=== PATIENT | male | born 1955 | race Caucasian/White ===

== ENCOUNTER → 2020-07-07 09:39 | Outpatient (BNVA) | payer OTHER, SELFPAY | PROVIDERS: PCP Internal Medicine; Visit Provider Internal Medicine | DX: Q21.1 Atrial septal defect (principal); Z86.73 Personal history of transient ischemic attack (TIA), and cerebral infarction without residual deficits; Z79.82 Long term (current) use of aspirin | CPT/HCPCS: 99212 ==

== ENCOUNTER 2020-07-26 09:08 | Outpatient (REF) | payer OTHER, SELFPAY ==
[2020-07-26 12:38] LABS: Anion Gap 12 (12-20); Blood Urea Nitrogen 13 mg/dL (9-16); Calcium 8.7 mg/dL (8.4-10.2); Carbon Dioxide 27 mmol/L (22-29); Chloride 107 mmol/L (96-108); Cholesterol 211 mg/dL; Estimated Glomerular Filt Rate > 60; Glucose Fasting 100 mg/dL (60-99); HDL Cholesterol 33 mg/dL; LDL Cholesterol Calculated 140 mg/dl; Potassium 4.1 mmol/l (3.3-5.1); Sodium 142 mmol/L (135-145); Triglycerides 192 mg/dL
== END 2020-07-26 09:09 | disposition home or self-care (01) ==
LOC: HO.HMGCLDS 09:08
PROVIDERS: PCP Internal Medicine; Visit Provider Internal Medicine
DX: E78.9 Disorder of lipoprotein metabolism, unspecified (principal); F41.1 Generalized anxiety disorder; I10 Essential (primary) hypertension; M79.671 Pain in right foot
CPT/HCPCS: 80048; 80061

== ENCOUNTER → 2020-09-28 09:39 | Outpatient (BNVA) | payer OTHER, SELFPAY | PROVIDERS: PCP Internal Medicine; Visit Provider Internal Medicine ==

== ENCOUNTER 2020-10-14 12:34 | Outpatient (REF) | payer OTHER, SELFPAY ==
--- NOTE | ~2020-10-14 | MR_ITS ---
EXAMINATION: MR BRAIN WITHOUT CONTRAST CLINICAL INFORMATION: History stroke and 2019. Peripheral vision loss. COMPARISON: 03/09/2019 TECHNIQUE: MRI of the brain was obtained using routine sequences without contrast. FINDINGS: Interval evolution of the previously seen bilateral inferior medial (lingual gyri) occipital lobe infarct into bilateral encephalomalacic changes, associated gliosis and hemosiderin staining. Scattered bilateral subcortical and periventricular foci of T2 prolongation show slight interval progression from the previous exam compatible with chronic white matter small vessel ischemic disease. Diffusion weighted images fail to demonstrate evidence of acute or subacute infarct. No evidence of intracranial mass, mass effect or herniation pattern. No extra-axial collection. Posterior fossa structures are normal. The craniocervical junction is normal. Midline structures including the posterior pituitary bright spot are normal. The lateral and third ventricles are normal and proportionate to the subarachnoid spaces and there is no evidence of hydrocephalus. The intracranial vascular flow voids including the major dural venous sinuses are preserved. Mastoid air cells are clear. Mucus retention cyst present within the left maxillary sinus. Paranasal sinuses are otherwise clear. Globes and orbits are symmetric. MR/MR head/brain wo con IMPRESSION: * No acute or subacute intracranial pathology. * Old bilateral occipital lingual gyral infarcts. * Chronic progressive moderate white matter small vessel ischemic changes.
== END 2020-10-14 12:35 | disposition home or self-care (01) ==
LOC: HO.MRI 12:34
PROVIDERS: Visit Provider Psychiatry & Neurology Neurology
DX: I63.9 Cerebral infarction, unspecified (principal)
CPT/HCPCS: 70551

== ENCOUNTER 2020-10-21 11:50 | Outpatient (REF) | payer OTHER, SELFPAY ==
[2020-10-21 12:17] VITALS: BP 167/84; PULSE 44; RESP 16; TEMP 36.3; O2SAT 98
[2020-10-21 12:21] VITALS: BMI 32.8
[2020-10-21 12:54] VITALS: BP 168/96; PULSE 55; RESP 16; O2SAT 97
--- NOTE | 2020-10-21 13:00 | PM.OP ---
Brief Operative Note Date of Service: 10/21/20 Pre-op diagnosis: CVA Post-op diagnosis: same Procedure: Implantable loop recorder placement Implants: After obtaining consent patient brought to the minor surgery suite . Patient was then laid on the surgical table. Patient's precordial area was then prepped and draped in a sterile fashion. Patient was then given 2% lidocaine with epinephrine intradermally and subcutaneously. Small incision was then made in the 4th intercostal space. A [place] implantable loop recorder confirm device was then implanted using Seldinger technique. Patient tolerated the procedure well. Serial [id number]. Measured R-wave at 0.5 mV Surgeon: Harjeet Ardon MD Anesthesia: local Estimated blood loss (mL): 1 Pathology: none sent Condition: stable Disposition: same day
== END 2020-10-21 11:51 | disposition home or self-care (01) ==
LOC: HO.MS 11:50
PROVIDERS: PCP Internal Medicine; Visit Provider Internal Medicine Cardiovascular Disease
PROC: (CPT 33285; principal; 2020-10-21 12:30)
DX: I63.9 Cerebral infarction, unspecified (principal)
CPT/HCPCS: 33285; C1764

== ENCOUNTER → 2020-11-01 10:24 | Outpatient (BNVA) | payer OTHER, SELFPAY | PROVIDERS: PCP Internal Medicine; Visit Provider Nurse Practitioner Family | DX: I63.40 Cerebral infarction due to embolism of unspecified cerebral artery (principal); Q21.1 Atrial septal defect; Z95.818 Presence of other cardiac implants and grafts; Z79.899 Other long term (current) drug therapy | CPT/HCPCS: 99212 ==

== ENCOUNTER → 2020-11-09 11:28 | Outpatient (BNVA) | payer OTHER, SELFPAY | PROVIDERS: PCP Internal Medicine; Visit Provider Nurse Practitioner Family | DX: I10 Essential (primary) hypertension (principal); Z51.89 Encounter for other specified aftercare; Z79.899 Other long term (current) drug therapy; Z87.891 Personal history of nicotine dependence; Z79.82 Long term (current) use of aspirin | CPT/HCPCS: 99212 ==

== ENCOUNTER → 2020-11-16 12:01 | Outpatient (BNVA) | payer OTHER, SELFPAY | PROVIDERS: PCP Internal Medicine; Visit Provider Nurse Practitioner Family | DX: Z51.89 Encounter for other specified aftercare (principal); I10 Essential (primary) hypertension; Z79.899 Other long term (current) drug therapy | CPT/HCPCS: 99212 ==

== ENCOUNTER → 2020-12-01 12:02 | Outpatient (BNVA) | payer OTHER, SELFPAY | PROVIDERS: PCP Internal Medicine; Visit Provider Nurse Practitioner Family | DX: Z51.89 Encounter for other specified aftercare (principal); Z95.818 Presence of other cardiac implants and grafts | CPT/HCPCS: 99212 ==

== ENCOUNTER 2021-01-16 08:49 | Outpatient (REF) | payer OTHER, SELFPAY ==
[2021-01-16 11:19] LABS: MANUAL DIFF FLAG NO
[2021-01-16 12:02] LABS: Basophils Percent Auto 0.6 % (0-2); Eosinophils Absolute Auto 0.1 X10*3/uL (0.0-0.4); Eosinophils Percent Auto 1.5 % (0-4); Hematocrit 41.9 % (42-52); Imm Gran Abs Auto 0.02 X10*3/uL (0.00-0.03); Imm Gran Pct Auto 0.4 % (0.0-0.4); Lymphocytes Absolute Auto 1.4 X10*3/uL (1.2-4.9); Lymphocytes Percent Auto 26.7 % (20-40); Mean Corpuscular HGB Conc 33.4 g/dl (31.0-36.0); Mean Corpuscular Hemoglobin 31.4 pg (27.0-33.0); Mean Corpuscular Volume 93.9 fL (80-98); Mean Platelet Volume 9.5 fL (9.4-12.4); Monocytes Absolute Auto 0.3 X10*3/uL (0.1-1.2); Monocytes Percent Auto 6.2 % (2-11); Neutrophils Absolute Auto 3.5 X10*3/uL (2.0-8.3); Neutrophils Percent Auto 64.6 % (45-73); Platelet Count 234 X10*3/uL (160-400); Red Blood Count 4.46 X10*6/uL (4.60-5.80); Red Cell Distribution Width 12.9 % (11.0-16.0); White Blood Count 5.4 X10*3/uL (4.8-10.8)
[2021-01-16 12:10] LABS: Alanine Aminotransferase 16 U/L (0-40); Albumin Level 4.4 g/dL (3.5-5.0); Alkaline Phosphatase 81 U/L (39-117); Anion Gap 11 (12-20); Aspartate Amino Transferase 18 U/L (5-37); Bilirubin Total 0.6 mg/dL (0.0-1.0); Blood Urea Nitrogen 11 mg/dL (9-16); Calcium 9.2 mg/dL (8.4-10.2); Carbon Dioxide 29 mmol/L (22-29); Chloride 105 mmol/L (96-108); Cholesterol 196 mg/dL; Estimated Glomerular Filt Rate > 60; Glucose Fasting 97 mg/dL (60-99); HDL Cholesterol 36 mg/dL; LDL Cholesterol Calculated 112 mg/dl; Potassium 4.2 mmol/L (3.3-5.1); Sodium 141 mmol/L (135-145); Total Protein 7.3 g/dL (6.5-8.0); Triglycerides 243 mg/dL
[2021-01-16 12:13] LABS: TSH reflex Free T4 1.14 uIU/mL (0.32-4.0)
== END 2021-01-16 08:50 | disposition home or self-care (01) ==
LOC: HO.HMGCLDS 08:49
PROVIDERS: PCP Internal Medicine; Visit Provider Internal Medicine
DX: E78.9 Disorder of lipoprotein metabolism, unspecified (principal); F41.1 Generalized anxiety disorder; I10 Essential (primary) hypertension; R21 Rash and other nonspecific skin eruption
CPT/HCPCS: 36415; 80053; 80061; 84443; 85025

== ENCOUNTER 2021-03-28 10:38 | Outpatient (REF) | payer OTHER, SELFPAY ==
[2021-03-29 16:51] LABS: Lyme Blot 6.24 index
[2021-03-30 08:48] LABS: Lyme Abs Screen POSITIVE
[2021-03-31 20:42] LABS: 18 KD (IgG) Band REACTIVE; 23 KD (IgG) Band REACTIVE; 23 KD (IgM) Band REACTIVE; 28 KD (IgG) Band NON-REACTIVE; 30 KD (IgG) Band NON-REACTIVE; 39 KD (IgM) Band NON-REACTIVE; 41 KD (IgM) Band NON-REACTIVE; 45 KD (IgG) Band NON-REACTIVE; 58 KD (IgG) Band NON-REACTIVE; 66 KD (IgG) Band NON-REACTIVE; 93 KD (IgG) Band NON-REACTIVE; Lyme IgG Blot Interp NEGATIVE (NEGATIVE); Lyme IgM Blot Interp NEGATIVE (NEGATIVE)
== END 2021-03-28 10:39 | disposition home or self-care (01) ==
LOC: HO.HMGCLDS 10:38
PROVIDERS: PCP Internal Medicine; Visit Provider Hospitalist
DX: T14.8XXA Other injury of unspecified body region, initial encounter (principal); W57.XXXA Bitten or stung by nonvenomous insect and other nonvenomous arthropods, initial encounter
CPT/HCPCS: 36415; 86617; 86618

== ENCOUNTER 2021-05-09 14:05 | Outpatient (REF) | payer OTHER, SELFPAY ==
[2021-05-09 18:10] LABS: Alanine Aminotransferase 20 U/L (0-40); Albumin Level 4.7 g/dL (3.5-5.0); Alkaline Phosphatase 75 U/L (39-117); Anion Gap 12 (12-20); Aspartate Amino Transferase 21 U/L (5-37); Bilirubin Total 0.6 mg/dL (0.0-1.0); Blood Urea Nitrogen 13 mg/dL (9-16); Calcium 9.9 mg/dL (8.4-10.2); Carbon Dioxide 28 mmol/L (22-29); Chloride 104 mmol/L (96-108); Estimated Glomerular Filt Rate > 60; Glucose Random 86 mg/dL (60-115); Potassium 4.7 mmol/L (3.3-5.1); Sodium 139 mmol/L (135-145); Total Protein 7.9 g/dL (6.5-8.0)
== END 2021-05-09 14:06 | disposition home or self-care (01) ==
LOC: HO.HMGCLDS 14:05
PROVIDERS: PCP Internal Medicine; Visit Provider Internal Medicine
DX: F41.1 Generalized anxiety disorder (principal); I10 Essential (primary) hypertension; E78.9 Disorder of lipoprotein metabolism, unspecified; Z95.818 Presence of other cardiac implants and grafts
CPT/HCPCS: 36415; 80053

== ENCOUNTER → 2021-05-10 13:12 | Outpatient (BNVA) | payer OTHER, SELFPAY | PROVIDERS: PCP Internal Medicine; Referring Provider Internal Medicine; Visit Provider Internal Medicine | DX: I63.40 Cerebral infarction due to embolism of unspecified cerebral artery (principal); Q21.1 Atrial septal defect; I10 Essential (primary) hypertension | CPT/HCPCS: 93005; 99212 ==

== ENCOUNTER 2021-10-11 13:38 | Outpatient (REF) | payer MEDICARE, MEDICAID, SELFPAY ==
[2021-10-11 16:27] LABS: MANUAL DIFF FLAG NO
[2021-10-11 16:29] LABS: Basophils Percent Auto 0.8 % (0-2); Eosinophils Absolute Auto 0.1 X10*3/uL (0.0-0.4); Eosinophils Percent Auto 1.8 % (0-4); Hematocrit 40.3 % (42.0-52.0); Hemoglobin 13.5 g/dl (14.0-18.0); Imm Gran Abs Auto 0.02 X10*3/uL (0.00-0.03); Imm Gran Pct Auto 0.4 % (0.0-0.4); Lymphocytes Absolute Auto 1.4 X10*3/uL (1.2-4.9); Lymphocytes Percent Auto 27.2 % (20-40); Mean Corpuscular HGB Conc 33.5 g/dl (31.0-36.0); Mean Corpuscular Volume 92.4 fL (80.0-98.0); Mean Platelet Volume 9.5 fL (9.4-12.4); Monocytes Absolute Auto 0.4 X10*3/uL (0.1-1.2); Monocytes Percent Auto 7.7 % (2-11); Neutrophils Absolute Auto 3.1 x10*3/uL (2.0-8.3); Neutrophils Percent Auto 62.1 % (45-73); Platelet Count 265 X10*3/uL (160-400); Red Blood Count 4.36 X10*6/uL (4.60-5.80); Red Cell Distribution Width 13.1 % (11.0-16.0)
[2021-10-11 16:44] LABS: Alanine Aminotransferase 13 U/L (0-40); Albumin Level 4.4 g/dL (3.5-5.0); Alkaline Phosphatase 87 U/L (39-117); Anion Gap 11 (12-20); Aspartate Amino Transferase 17 U/L (5-37); Bilirubin Total < 0.2 mg/dL (0.0-1.0); Blood Urea Nitrogen 13 mg/dL (9-16); Calcium 9.3 mg/dL (8.4-10.2); Carbon Dioxide 29 mmol/L (22-29); Chloride 104 mmol/L (96-108); Estimated Glomerular Filt Rate > 60; Glucose Random 90 mg/dL (60-115); Potassium 3.9 mmol/L (3.3-5.1); Sodium 140 mmol/L (135-145); Total Protein 7.5 g/dL (6.5-8.0)
== END 2021-10-11 13:39 | disposition home or self-care (01) ==
LOC: HO.HMGCLDS 13:38
PROVIDERS: PCP Internal Medicine; Visit Provider Internal Medicine
DX: I63.9 Cerebral infarction, unspecified (principal); I10 Essential (primary) hypertension; Q21.1 Atrial septal defect; F41.1 Generalized anxiety disorder; E78.9 Disorder of lipoprotein metabolism, unspecified
CPT/HCPCS: 36415; 80053; 85025

== ENCOUNTER 2022-01-16 08:32 | Outpatient (REF) | payer MEDICARE, MEDICAID, SELFPAY ==
[2022-01-16 11:25] LABS: MANUAL DIFF FLAG NO
[2022-01-16 11:29] LABS: Basophils Percent Auto 0.7 % (0-2); Eosinophils Absolute Auto 0.1 X10*3/uL (0.0-0.4); Eosinophils Percent Auto 1.8 % (0-4); Hematocrit 41.7 % (42.0-52.0); Hemoglobin 13.8 g/dl (14.0-18.0); Imm Gran Abs Auto 0.03 X10*3/uL (0.00-0.03); Imm Gran Pct Auto 0.5 % (0.0-0.4); Lymphocytes Absolute Auto 1.3 X10*3/uL (1.2-4.9); Lymphocytes Percent Auto 23.4 % (20-40); Mean Corpuscular HGB Conc 33.1 g/dl (31.0-36.0); Mean Corpuscular Hemoglobin 30.5 pg (27.0-33.0); Mean Corpuscular Volume 92.1 fL (80.0-98.0); Mean Platelet Volume 9.2 fL (9.4-12.4); Monocytes Absolute Auto 0.4 X10*3/uL (0.1-1.2); Monocytes Percent Auto 7.6 % (2-11); Neutrophils Absolute Auto 3.8 x10*3/uL (2.0-8.3); Platelet Count 257 X10*3/uL (160-400); Red Blood Count 4.53 X10*6/uL (4.60-5.80); Red Cell Distribution Width 13.3 % (11.0-16.0); White Blood Count 5.7 X10*3/uL (4.8-10.8)
[2022-01-16 11:43] LABS: Alanine Aminotransferase 14 U/L (0-40); Albumin Level 4.3 g/dL (3.5-5.0); Alkaline Phosphatase 92 U/L (39-117); Anion Gap 13 (12-20); Aspartate Amino Transferase 15 U/L (5-37); Bilirubin Total 0.3 mg/dL (0.0-1.0); Blood Urea Nitrogen 15 mg/dL (9-16); Calcium 9.6 mg/dL (8.4-10.2); Carbon Dioxide 28 mmol/L (22-29); Chloride 105 mmol/L (96-108); Cholesterol 193 mg/dL; Estimated Glomerular Filt Rate > 60; Glucose Fasting 102 mg/dL (60-99); HDL Cholesterol 32 mg/dL; LDL Cholesterol Calculated 109 mg/dl; Potassium 4.4 mmol/L (3.3-5.1); Sodium 142 mmol/L (135-145); Total Protein 7.6 g/dL (6.5-8.0); Triglycerides 263 mg/dL
== END 2022-01-16 08:33 | disposition home or self-care (01) ==
LOC: HO.HMGCLDS 08:32
PROVIDERS: PCP Internal Medicine; Visit Provider Internal Medicine
DX: E78.9 Disorder of lipoprotein metabolism, unspecified (principal); I10 Essential (primary) hypertension; F41.1 Generalized anxiety disorder; I63.9 Cerebral infarction, unspecified; Q21.1 Atrial septal defect
CPT/HCPCS: 36415; 80053; 80061; 85025

== ENCOUNTER 2022-08-13 13:35 | Outpatient (REF) | payer MEDICARE, MEDICAID, SELFPAY ==
[2022-08-13 17:26] LABS: Alanine Aminotransferase 19 U/L (0-40); Albumin Level 4.6 g/dL (3.5-5.0); Alkaline Phosphatase 99 U/L (39-117); Anion Gap 12 (12-20); Aspartate Amino Transferase 19 U/L (5-37); Bilirubin Total 0.6 mg/dL (0.0-1.0); Blood Urea Nitrogen 15 mg/dL (9-16); Calcium 9.3 mg/dL (8.4-10.2); Carbon Dioxide 25 mmol/L (22-29); Chloride 105 mmol/L (96-108); Estimated Glomerular Filt Rate > 60; Glucose Random 95 mg/dL (60-115); Potassium 4.4 mmol/L (3.3-5.1); Sodium 138 mmol/L (135-145); Total Protein 7.6 g/dL (6.5-8.0)
[2022-08-14 05:17] LABS: Estimated Average Glucose 105 mg/dL; Hemoglobin A1c % 5.3 %
== END 2022-08-13 13:36 | disposition home or self-care (01) ==
LOC: HO.HMGCLDS 13:35
PROVIDERS: PCP Internal Medicine; Visit Provider Internal Medicine
DX: E78.9 Disorder of lipoprotein metabolism, unspecified (principal); F41.1 Generalized anxiety disorder; I63.9 Cerebral infarction, unspecified; I10 Essential (primary) hypertension
CPT/HCPCS: 36415; 80053; 83036

== ENCOUNTER 2022-08-23 17:01 | Outpatient (REF) | payer MEDICARE, MEDICAID, SELFPAY ==
--- NOTE | ~2022-08-23 | XR_ITS ---
EXAMINATION: XR ELBOW, LEFT CLINICAL INFORMATION: Lateral epicondylitis left elbow. COMPARISON: None TECHNIQUE: AP, lateral, and oblique views of the left elbow. FINDINGS: The bones and soft tissues are normal. No acute fracture or joint effusion. Alignment is anatomic. Joint spaces are maintained. XR/XR elbow LT min 3V IMPRESSION: Unremarkable left elbow exam.
== END 2022-08-23 17:02 | disposition home or self-care (01) ==
LOC: HO.HOSX 17:01
PROVIDERS: Visit Provider Orthopaedic Surgery
DX: M77.12 Lateral epicondylitis, left elbow (principal); R73.01 Impaired fasting glucose
CPT/HCPCS: 20551; 73080; 99212; J1100

== ENCOUNTER 2022-12-12 12:01 | Outpatient (REF) | payer MEDICARE, MEDICAID, SELFPAY ==
[2022-12-12 14:00] LABS: MANUAL DIFF FLAG NO
[2022-12-12 14:09] LABS: Basophils Percent Auto 0.8 % (0-2); Eosinophils Absolute Auto 0.1 X10*3/uL (0.0-0.4); Eosinophils Percent Auto 1.7 % (0-4); Hematocrit 39.3 % (42.0-52.0); Hemoglobin 13.5 g/dl (14.0-18.0); Imm Gran Abs Auto 0.02 X10*3/uL (0.00-0.03); Imm Gran Pct Auto 0.4 % (0.0-0.4); Lymphocytes Absolute Auto 1.5 X10*3/uL (1.2-4.9); Lymphocytes Percent Auto 28.8 % (20-40); Mean Corpuscular HGB Conc 34.4 g/dl (31.0-36.0); Mean Corpuscular Volume 93.1 fL (80.0-98.0); Monocytes Absolute Auto 0.3 X10*3/uL (0.1-1.2); Monocytes Percent Auto 6.3 % (2-11); Neutrophils Absolute Auto 3.3 x10*3/uL (2.0-8.3); Platelet Count 278 X10*3/uL (160-400); Red Blood Count 4.22 X10*6/uL (4.60-5.80); Red Cell Distribution Width 13.2 % (11.0-16.0); White Blood Count 5.2 X10*3/uL (4.8-10.8)
[2022-12-12 14:17] LABS: Estimated Average Glucose 103 mg/dL; Hemoglobin A1c % 5.2 %
[2022-12-12 15:00] LABS: Alanine Aminotransferase 17 U/L (0-40); Albumin Level 4.4 g/dL (3.5-5.0); Alkaline Phosphatase 83 U/L (39-117); Anion Gap 11 (12-20); Aspartate Amino Transferase 21 U/L (5-37); Bilirubin Total 0.4 mg/dL (0.0-1.0); Blood Urea Nitrogen 14 mg/dL (9-16); Calcium 9.3 mg/dL (8.4-10.2); Carbon Dioxide 29 mmol/L (22-29); Chloride 106 mmol/L (96-108); Estimated Glomerular Filt Rate > 60; Glucose Random 93 mg/dL (60-115); Potassium 4.8 mmol/L (3.3-5.1); Sodium 141 mmol/L (135-145); Total Protein 7.2 g/dL (6.5-8.0)
[2022-12-14 08:24] LABS: Lyme Abs Screen <0.90 index
== END 2022-12-12 12:02 | disposition home or self-care (01) ==
LOC: HO.HMGCLDS 12:01
PROVIDERS: PCP Internal Medicine; Visit Provider Internal Medicine
DX: R73.01 Impaired fasting glucose (principal); E78.9 Disorder of lipoprotein metabolism, unspecified; F41.1 Generalized anxiety disorder; I10 Essential (primary) hypertension; R76.8 Other specified abnormal immunological findings in serum
CPT/HCPCS: 36415; 80053; 83036; 85025; 86617; 86618

== ENCOUNTER 2023-03-13 13:01 | Outpatient (AMB) | payer MEDICARE, MEDICAID, SELFPAY ==
--- NOTE | 2023-03-13 13:02 | MHC.PC.OV ---
Vital Signs 03/13/23 13:05 Height 5 ft 7 in Weight 193 lb 6 oz BMI 30.3 BP 120/64 Blood Pressure Location Rt brachial Position Sitting Pulse 45 L Pulse Source Pulse Oximeter Pulse Oximetry (%) 97 Oxygen Delivery Method Room Air Intake Visit Reasons: 3m follow up Allergies Chocolate Allergy (Unknown, Verified 03/13/23 13:05) Itchy/ Watery Eyes Yeast Allergy (Unknown, Verified 03/13/23 13:05) Per allergy testing Medication List - Last Reconciled 03/13/23 by Leeann Petit MD amlodipine 5 mg PO DAILY 90 days apixaban (Eliquis) 5 mg PO BID 90 days atenolol 100 mg PO DAILY 90 days clotrimazole-betamethasone 1-0.05 % 1 appl topical ONCE 30 days sertraline 100 mg PO DAILY simvastatin 40 mg PO BEDTIME spironolactone 50 mg PO DAILY 90 days Tobacco use date assessed: 03/13/23 Fall risk assessment: No Falls in past year Last assessed Fall Risk: 03/13/23 Dental Screening Dental Screen Date: 03/13/23 Did you have a dental visit in the last 12 months?: No Did you have a dental problem in the last 6 months where you did not have access to dental care?: No Was dental information given to patient?: No HPI 3m follow up HPI Details 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 He has appointment coming up with Rheumatology in April. Hypertension: patient is taking amlodipine 5 mg, atenolol 100 mg and spironolactone 50 mg patient is tolerating medication Lipid disorder: Continue simvastatin 40 mg. Anxiety/depression is stable with sertraline 100 mg daily. Patient also is on Eliquis for lifelong. He has a history of stroke Follow-up 3 months [facility] Medical History Anxiety, generalized Cerebrovascular accident (CVA) Essential hypertension Foot pain, right Hypertension, essential Lipid disorder Other and unspecified hyperlipidemia PFO (patent foramen ovale) Surgical History History of dental surgery Family History Father Hypertension Myocardial infarct Mother No problems noted. Social History Housing: Other (RV) Alcohol intake: current Alcohol intake frequency: holidays/special occasions only Patient Tobacco Use Status: Former Tobacco user (20 years ag0) Tobacco use type: Cigarette e-Cigarette/Vaping Use: Never Used Current occupational status: disabled Cognitive needs: No Hearing needs: No Vision needs: Yes Questionnaire Thrive Questionnaire Date Thrive assessed: 05/09/21 AUDIT C Alcohol Use Questionnaire (AUDIT-C) 1. How often do you have a drink containing alcohol?: Never 3. How often do you have six or more drinks on one occasion?: Never Total Score: 0 Score Reviewed/Action Taken: Yes Review of Systems Const Denies chills and Denies fever(s) ENT Denies epistaxis and Denies nasal discharge Card Denies chest pain Resp Denies chest congestion, Denies cough and Denies hemoptysis GI Denies diarrhea and Denies nausea Skin/Breast Denies rash Neuro Reports no additional complaints Psych Reports no additional complaints Endo Reports no additional complaints Physical exam (Primary Care) Vital Signs: Last Vital Signs Pulse 45 L 03/13/23 13:05 BP 120/64 03/13/23 13:05 Pulse Ox 97 03/13/23 13:05 Oxygen Delivery Method Room Air 03/13/23 13:05 BMI result Body Mass Index 30.3 Tobacco/Smoking Status: Tobacco use Status Tobacco use date assessed 03/13/23 03/13/23 13:07 Patient Tobacco Use Status Former Tobacco user (20 03/13/23 13:04 years ag0) Tobacco use type Cigarette 03/13/23 13:04 e-Cigarette/Vaping Use Never Used 03/13/23 13:04 Thrive Assessment: Date of Thrive Assessment Date Thrive assessed 05/09/21 03/13/23 13:04 Const General: cooperative, comfortable and no acute distress Orientation/consciousness: patient oriented x3 HENMT Head: Yes normocephalic Eyes General: appearance normal, both eyes and all related structures Neck Neck: Yes supple Resp Effort & Inspection: normal respiratory effort, no cough and no stridor Cardio Rhythm: regular rhythm Heart sounds: S1 normal heart sound present and S2 normal heart sound present Skin General skin exam: turgor normal Neuro General: patient oriented x3, tone normal and moves all extremities Extrem Other: Range of motion intact in joints no swelling noted in elbows Right lower extremity: no edema Left lower extremity: no edema Assessment and Plan Assessment & Plan (1) Hypertension, essential: Code(s): I10 - Essential (primary) hypertension (2) Anxiety, generalized: Code(s): F41.1 - Generalized anxiety disorder (3) Impaired fasting blood sugar: Code(s): R73.01 - Impaired fasting glucose (4) Migratory polyarthritis: Code(s): 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 He has appointment coming up with Rheumatology in April. Hypertension: patient is taking amlodipine 5 mg, atenolol 100 mg and spironolactone 50 mg patient is tolerating medication Lipid disorder: Continue simvastatin 40 mg. Anxiety/depression is stable with sertraline 100 mg daily. Patient also is on Eliquis for lifelong. He has a history of stroke Follow-up 3 months Orders: Orders Vitamin B12 2 Months F41.1 - Generalized anxiety disorder, I10 - Essential (primary) hypertension, M13.80 - Other specified arthritis, unspecified site, R73.01 - Impaired fasting glucose Comprehensive Clifford. Panel Fast 2 Months F41.1 - Generalized anxiety disorder, I10 - Essential (primary) hypertension, M13.80 - Other specified arthritis, unspecified site, R73.01 - Impaired fasting glucose Lipid Panel 2 Months F41.1 - Generalized anxiety disorder, I10 - Essential (primary) hypertension, M13.80 - Other specified arthritis, unspecified site, R73.01 - Impaired fasting glucose TSH reflex Free T4 2 Months F41.1 - Generalized anxiety disorder, I10 - Essential (primary) hypertension, M13.80 - Other specified arthritis, unspecified site, R73.01 - Impaired fasting glucose Vitamin D 25-OH (D2 and D3) 2 Months F41.1 - Generalized anxiety disorder, I10 - Essential (primary) hypertension, M13.80 - Other specified arthritis, unspecified site, R73.01 - Impaired fasting glucose Complete Blood Count Auto Diff 2 Months F41.1 - Generalized anxiety disorder, I10 - Essential (primary) hypertension, M13.80 - Other specified arthritis, unspecified site, R73.01 - Impaired fasting glucose Coding Level of Care Code Est Pt Level 4 (58770) Diagnoses Hypertension, essential I10 Anxiety, generalized F41.1 Impaired fasting blood sugar R73.01 Migratory polyarthritis M13.80 History of stroke Z86.73
[2023-03-13 13:05] VITALS: BP 120/64; PULSE 45; O2SAT 97; BMI 30.3
== END 2023-03-13 14:14 | disposition home or self-care (01) ==
PROVIDERS: Visit Provider Internal Medicine
DX: I10 Essential (primary) hypertension (principal); F41.1 Generalized anxiety disorder; R73.01 Impaired fasting glucose; Z86.73 Personal history of transient ischemic attack (TIA), and cerebral infarction without residual deficits; M13.80 Other specified arthritis, unspecified site
CPT/HCPCS: 99214

== ENCOUNTER 2023-05-22 10:55 | Outpatient (AMB) | payer MEDICARE, MEDICAID, SELFPAY ==
--- NOTE | 2023-05-22 10:57 | A.OFFVIS_ITS ---
Intake Vital Signs 05/22/23 10:59 Height 5 ft 7 in Weight 195 lb 1.745 oz BMI 30.6 BP 102/60 Blood Pressure Location Rt brachial Position Sitting Pulse 50 Pulse Source Pulse Oximeter Temp 97.2 F Temp Source Skin Pulse Oximetry (%) 97 Intake Visit Reasons: Arthritis Intake Note: New pt presents today for consult. States had pain in all joints, has resolved, after seeing ortho- Lateral epicondylitis, left elbow; s/p cortisone injection. Lsw Required: No Accompanied by: Self / Same As Patient Allergies Chocolate Allergy (Unknown, Verified 05/22/23 11:02) Itchy/ Watery Eyes Yeast Allergy (Unknown, Verified 05/22/23 11:02) Per allergy testing Medication List - Last Reconciled 05/22/23 by Bridgette Murcia MD amlodipine 5 mg PO DAILY 90 days apixaban (Eliquis) 5 mg PO BID 90 days atenolol 100 mg PO DAILY 90 days clotrimazole-betamethasone 1-0.05 % 1 appl topical ONCE 30 days sertraline 100 mg PO DAILY simvastatin 40 mg PO BEDTIME spironolactone 50 mg PO DAILY 90 days HPI HPI Comments History of Present Illness Details This is a 67-year-old male presents for evaluation of migratory arthritis. Patient mentioned that he was diagnosed with Lyme disease a few years ago and received antibiotics with resolution. Back in July of 2022 patient was having left elbow pain. He was evaluated by Orthopedics and received a steroid injection which started to help after a few days, a few days after he started having pain in his right elbow. Over the last few months has been having alternating pain in his elbows, intermittently in his neck. States that he had dental work done about a month ago and received antibiotics by dentist. He states that he feels the antibiotics significantly helped his joint pain. Currently patient only has minimal pain in his elbows. Feeling well otherwise [facility] Medical History Anxiety, generalized Hypertension, essential Lipid disorder Foot pain, right Other and unspecified hyperlipidemia Essential hypertension PFO (patent foramen ovale) Cerebrovascular accident (CVA) Surgical History History of dental surgery Family History Father Hypertension Myocardial infarct Mother No problems noted. 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 Cognitive needs: No Hearing needs: No Vision needs: Yes Review of Systems Const Reports headache(s) Eyes Reports dry eyes and Reports itchy eyes ENT Reports headache(s) Musc Reports arthralgias Skin/Breast Reports unusual bruising Neuro Reports headache(s) Psych Reports anxiety and Reports depression Aller/Immun Reports itchy eyes Physical Exam Vital Signs: Last Vital Signs Temp 97.2 F 05/22/23 10:59 Pulse 50 05/22/23 10:59 BP 102/60 05/22/23 10:59 Pulse Ox 97 05/22/23 10:59 BMI result Body Mass Index 30.6 Const General: cooperative, healthy appearing and comfortable Nutritional Appearance: overweight Orientation/consciousness: patient oriented x3 Limitations: no limitations HEENT Head: Yes normocephalic and Yes atraumatic Mouth: moist mucous membranes Resp Effort & Inspection: normal respiratory effort and able to speak in complete sentences Auscultation: clear to auscultation bilaterally Cardio Rate: regular rate Rhythm: regular rhythm Skin General skin exam: no rashes or lesions noted Neuro General: patient oriented x3 Extrem Other: Mild tenderness at the common extensor origin at the lateral epicondyles bilaterally with negatives resisted wrist extension test Negative resisted wrist flexion test bilaterally Mildly positive lift-off test on the left No active synovitis Osteoarthritic changes of both hands with no active synovitis No Achillis tendon tenderness or swelling bilaterally Normal nailfold capillaroscopy Assessment & Plan Assessment & Plan (1) Migratory polyarthritis: Code(s): M13.80 - Other specified arthritis, unspecified site Plan: This is a 67-year-old male who presents for evaluation of migratory joint pain. Started in July of 2022 he had a left tennis elbow s/p cortisone injection by Orthopedics followed by right tennis elbow, intermittent and migratory pain in his elbows and neck over the last few months. Improved after a course of antibiotics by dentist 1 month ago. Patient was treated for Lyme disease a few years ago. Lyme screen this year is negative Upon evaluation today I do not see any signs of an autoimmune rheumatic disease. Advised patient to return to clinic once he has recurrence of symptoms. Follow- up as needed. Take pictures of swollen joints Plan I spent 30 minutes reviewing patient's chart, evaluating patient, counseling patient and documenting in the chart Coding Level of Care Code New Pt Level 3 (40612) Diagnoses Migratory polyarthritis M13.80
[2023-05-22 10:59] VITALS: BP 102/60; PULSE 50; TEMP 36.2; O2SAT 97; BMI 30.6
== END 2023-05-22 11:24 | disposition home or self-care (01) ==
PROVIDERS: PCP Internal Medicine; Visit Provider Student in an Organized Health Care Education/Training Program
DX: M13.80 Other specified arthritis, unspecified site (principal)
CPT/HCPCS: 99203

== ENCOUNTER → 2023-05-22 10:55 | Outpatient (BNVA) | payer MEDICARE, MEDICAID, SELFPAY | PROVIDERS: PCP Internal Medicine; Visit Provider Student in an Organized Health Care Education/Training Program ==

== ENCOUNTER 2023-06-18 10:30 | Outpatient (AMB) | payer MEDICARE, SELFPAY ==
[2023-06-18 10:40] VITALS: BP 112/60; PULSE 65; TEMP 35.9; O2SAT 98; BMI 30.5
--- NOTE | 2023-06-18 10:40 | AM.OFFWIN_ITS ---
Intake Vital Signs 06/18/23 10:40 Height 5 ft 7 in Weight 195 lb BMI 30.5 BP 112/60 Blood Pressure Location Rt brachial Position Sitting Pulse 65 Pulse Source Pulse Oximeter Temp 96.7 F L Temp Source Temporal Artery Scan Pulse Oximetry (%) 98 Oxygen Delivery Method Room Air Intake Visit Reasons: EP, Left upper arm tic bite Intake Note: Pt is here c/o tic bite on his left medial bicep. Patient Tobacco Use Status: Former Tobacco user (20 years ag0) Allergies Chocolate Allergy (Unknown, Verified 06/18/23 11:07) Itchy/ Watery Eyes Yeast Allergy (Unknown, Verified 06/18/23 11:07) Per allergy testing Medication List - Last Reconciled 06/18/23 by Hawk Hunter MD amlodipine 5 mg PO DAILY 90 days apixaban (Eliquis) 5 mg PO BID 90 days atenolol 100 mg PO DAILY 90 days clotrimazole-betamethasone 1-0.05 % 1 appl topical ONCE 30 days sertraline 100 mg PO DAILY simvastatin 40 mg PO BEDTIME spironolactone 50 mg PO DAILY 90 days Do you need a note to return to daycare/school/sports/work: No HPI EP, Left upper arm tic bite HPI Details 67-year-old male presents to the office for a sick visit it would like to get a wound on the back of his left arm examined. He was bitten by a tick yesterday. He pulled the tick out in its entirety. [facility] Medical History Anxiety, generalized Hypertension, essential Lipid disorder Foot pain, right Other and unspecified hyperlipidemia Essential hypertension PFO (patent foramen ovale) Cerebrovascular accident (CVA) Surgical History History of dental surgery Family History Father Hypertension Myocardial infarct Mother No problems noted. 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 Central areas hyperemic at the site of bite. Assessment & Plan Assessment & Plan (1) Tick bite of left upper arm: Code(s): S40.862A - Insect bite (nonvenomous) of left upper arm, initial encounter; W57.XXXA - Bitten or stung by nonvenomous insect and other nonvenomous arthropods, initial encounter Plan: Signs and symptoms of Lyme disease explained. Lyme titer in 3 weeks. Single dose of doxycycline given. Coding Level of Care Code Est Pt Level 3 (64991) Diagnoses Tick bite of left upper arm S40.862A; W57.XXXA
== END 2023-06-18 11:17 | disposition home or self-care (01) ==
PROVIDERS: PCP Internal Medicine; Visit Provider Internal Medicine
DX: S40.862A Insect bite (nonvenomous) of left upper arm, initial encounter (principal); W57.XXXA Bitten or stung by nonvenomous insect and other nonvenomous arthropods, initial encounter
CPT/HCPCS: 99213

== ENCOUNTER 2023-09-18 10:40 | Outpatient (AMB) | payer MEDICARE, SELFPAY ==
[2023-09-18 10:42] VITALS: BP 122/62; PULSE 45; O2SAT 95; BMI 30.9
--- NOTE | 2023-09-18 10:42 | MHC.PC.OV ---
Vital Signs 09/18/23 10:42 Height 5 ft 7 in Weight 197 lb 8 oz BMI 30.9 BP 122/62 Blood Pressure Location Rt brachial Position Sitting Pulse 45 L Pulse Source Pulse Oximeter Pulse Oximetry (%) 95 Oxygen Delivery Method Room Air Intake Visit Reasons: Follow UP Allergies Chocolate Allergy (Unknown, Verified 09/18/23 10:43) Itchy/ Watery Eyes Yeast Allergy (Unknown, Verified 09/18/23 10:43) Per allergy testing Medication List - Last Reconciled 09/18/23 by Leeann Petit MD amlodipine 5 mg PO DAILY 90 days apixaban (Eliquis) 5 mg PO BID 90 days atenolol 100 mg PO DAILY 90 days sertraline 100 mg PO DAILY simvastatin 40 mg PO BEDTIME spironolactone 50 mg PO DAILY 90 days Tobacco use date assessed: 09/18/23 Fall risk assessment: No Falls in past year Last assessed Fall Risk: 09/18/23 Dental Screening Dental Screen Date: 09/18/23 Did you have a dental visit in the last 12 months?: Yes Did you have a dental problem in the last 6 months where you did not have access to dental care?: No Was dental information given to patient?: Patient has dentist HPI Follow UP HPI Details Patient is 67-year-old gentleman who was last seen February of last year, patient says that was not reminded for the appointment so he missed it He is due for labs, order is in the system patient was notified to do it fasting BMI is elevated patient is trying to lose weight He is doing well and offer no complaints today Last visit he was having lot of joint pains, he has seen Rheumatology but by the time his appointment arrived his joint pains resolved He does have history of elevated Lyme titer that was treated with antibiotic appropriately Hypertension: patient is taking amlodipine 5 mg, atenolol 100 mg and spironolactone 50 mg patient is tolerating medication Lipid disorder: Continue simvastatin 40 mg. Anxiety/depression is stable with sertraline 100 mg daily. Patient also is on Eliquis for lifelong. He has a history of stroke Follow-up 3 months [facility] Medical History Anxiety, generalized Hypertension, essential Lipid disorder Foot pain, right Other and unspecified hyperlipidemia Essential hypertension PFO (patent foramen ovale) Cerebrovascular accident (CVA) Surgical History History of dental surgery Family History Father Hypertension Myocardial infarct Mother No problems noted. 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 1. Little interest or pleasure in doing things: not at all 2. Feeling down, depressed, or hopeless: not at all 3. Trouble falling or staying asleep, or sleeping too much: more than half the days 4. Feeling tired or having little energy: several days 5. Poor appetite or overeating: not at all 6. Feeling bad about yourself - or that you are a failure or have let yourself or your family down: not at all 7. Trouble concentrating on things, such as reading the newspaper or watching television: not at all 8. Moving or speaking so slowly that other people could have noticed. Or the opposite - being so fidgety or restless that you have been moving around a lot more than usual: not at all 9. Thoughts that you would be better off or of hurting yourself in some way: not at all Total score: 3 Depression Screening Interpretation: Negative Depression Screening Done: Yes 67190 - PHQ-9 Billing: Yes Source: Developed by Drs. Reji Patton, Betsy Low, Zachariah Ko and colleagues, with an educational lucy from [employer]. Thrive Questionnaire Date Thrive assessed: 09/18/23 I am a: Patient What is your living situation today?: I have a steady place to live Within the past 12 months, did the food you bought not last and you didn't have the money to get more?: Never true Within the past 12 months, did you worry whether your food would run out before you got money to buy more?: Never true Do you have trouble paying for medicines?: No Do you have trouble getting transportation to medical appointments?: No Do you have trouble paying your heating and electricity bill?: No Do you have trouble taking care of your child, family member or friend?: No Do you have trouble with day-to-day activities such as bathing, preparing meals, shopping, managing finances, etc.?: No Are you currently unemployed and looking for a job?: No Are you interested in more education?: No Please select the resources that you would like help with: None Currently or been in a relationship where the following occur: no concerns reported THRIVE Score: 0 AUDIT C Alcohol Use Questionnaire (AUDIT-C) 1. How often do you have a drink containing alcohol?: Never 3. How often do you have six or more drinks on one occasion?: Never Total Score: 0 Score Reviewed/Action Taken: Yes ASHLEY-7 AMB Questionnaire ASHLEY-7 Date ASHLEY - 7 assessed: 09/18/23 Feeling nervous, anxious, or on edge: 0 = Not at all Not being able to stop or control worryin = Not at all Worrying too much about different things: 0 = Not at all Trouble relaxin = Not at all Being so restless that it is hard to sit still: 0 = Not at all Becoming easily annoyed or irritable: 0 = Not at all Feeling afraid as if something awful might happen: 0 = Not at all Total ASHLEY-7 score (0-4 normal; 5-9 mild; 10-14 moderate; 15-21 severe): 0 Source: Developed by Drs. Reji Patton, Betsy Low, Zachariah Ko and colleagues, with an educational lucy from [employer]. ASHLEY-7 Assessment Billing ASHLEY-7 Assessment Tool: ASHLEY-7 Assessment 59905 Review of Systems Const Denies chills and Denies fever(s) ENT Denies epistaxis and Denies nasal discharge Card Denies chest pain Resp Denies chest congestion, Denies cough and Denies hemoptysis GI Denies diarrhea and Denies nausea Skin/Breast Denies rash Neuro Reports no additional complaints Psych Reports no additional complaints Endo Reports no additional complaints Physical exam (Primary Care) Vital Signs: Last Vital Signs Pulse 45 L 09/18/23 10:42 BP 122/62 09/18/23 10:42 Pulse Ox 95 09/18/23 10:42 Oxygen Delivery Method Room Air 09/18/23 10:42 BMI result Body Mass Index 30.9 Tobacco/Smoking Status: Tobacco use Status Tobacco use date assessed 09/18/23 09/18/23 10:48 Patient Tobacco Use Status Former Tobacco user (20 09/18/23 10:48 years ag0) Tobacco use type Cigarette 09/18/23 10:48 e-Cigarette/Vaping Use Never Used 09/18/23 10:48 PHQ-9: PHQ-9 Score PHQ-9: Total score 3 09/18/23 11:44 Depression Screening Interpretation: Negative Thrive Assessment: Date of Thrive Assessment Date Thrive assessed 09/18/23 09/18/23 11:44 Currently or been in a relationship where the following occur: no concerns reported Const General: cooperative, comfortable and no acute distress Orientation/consciousness: patient oriented x3 HENMT Head: Yes normocephalic Eyes General: appearance normal, both eyes and all related structures Neck Neck: Yes supple Resp Effort & Inspection: normal respiratory effort, no cough and no stridor Cardio Rhythm: regular rhythm Heart sounds: S1 normal heart sound present and S2 normal heart sound present Skin General skin exam: turgor normal Neuro General: patient oriented x3, tone normal and moves all extremities Extrem Right lower extremity: no edema Left lower extremity: no edema Assessment and Plan Assessment & Plan (1) Essential hypertension: Code(s): I10 - Essential (primary) hypertension (2) Anxiety, generalized: Code(s): F41.1 - Generalized anxiety disorder (3) Impaired fasting blood sugar: Code(s): R73.01 - Impaired fasting glucose (4) Multiple cerebral infarctions: Code(s): I63.9 - Cerebral infarction, unspecified (5) Lipid disorder: Code(s): E78.9 - Disorder of lipoprotein metabolism, unspecified Plan Patient is 67-year-old gentleman who was last seen February of last year, patient says that was not reminded for the appointment so he missed it He is due for labs, order is in the system patient was notified to do it fasting BMI is elevated patient is trying to lose weight He is doing well and offer no complaints today Last visit he was having lot of joint pains, he has seen Rheumatology but by the time his appointment arrived his joint pains resolved He does have history of elevated Lyme titer that was treated with antibiotic appropriately Hypertension: patient is taking amlodipine 5 mg, atenolol 100 mg and spironolactone 50 mg patient is tolerating medication Lipid disorder: Continue simvastatin 40 mg. Anxiety/depression is stable with sertraline 100 mg daily. Patient also is on Eliquis for lifelong. He has a history of stroke Follow-up 3 months Medications: Refilled simvastatin 40 mg PO BEDTIME 90 tabs 1RF amlodipine 5 mg PO DAILY 90 tabs 1RF 90 days atenolol 100 mg PO DAILY 90 tabs 0RF 90 days sertraline 100 mg PO DAILY 90 tabs 1RF spironolactone 50 mg PO DAILY 90 tabs 0RF 90 days Coding Level of Care Code Est Pt Level 4 (29439) Diagnoses Essential hypertension I10 Anxiety, generalized F41.1 Impaired fasting blood sugar R73.01 Multiple cerebral infarctions I63.9 Lipid disorder E78.9 Additional Codes ASHLEY-7 Assessment Billing - ASHLEY-7 Assessment Tool: ASHLEY-7 Assessment 46906 ([id number])
== END 2023-09-18 11:10 | disposition home or self-care (01) ==
PROVIDERS: PCP Internal Medicine; Visit Provider Internal Medicine
DX: I10 Essential (primary) hypertension (principal); F41.1 Generalized anxiety disorder; R73.01 Impaired fasting glucose; E78.9 Disorder of lipoprotein metabolism, unspecified
CPT/HCPCS: 99214

== ENCOUNTER 2023-09-24 09:24 | Outpatient (REF) | payer MEDICARE, SELFPAY ==
[2023-09-24 10:21] LABS: MANUAL DIFF FLAG NO
[2023-09-24 10:36] LABS: Basophils Percent Auto 0.7 % (0-2); Eosinophils Absolute Auto 0.1 X10*3/uL (0.0-0.4); Hematocrit 40.3 % (42.0-52.0); Hemoglobin 13.6 g/dl (14.0-18.0); Imm Gran Abs Auto 0.02 X10*3/uL (0.00-0.03); Imm Gran Pct Auto 0.3 % (0.0-0.4); Lymphocytes Absolute Auto 1.5 X10*3/uL (1.2-4.9); Lymphocytes Percent Auto 25.3 % (20-40); Mean Corpuscular HGB Conc 33.7 g/dl (31.0-36.0); Mean Corpuscular Hemoglobin 31.7 pg (27.0-33.0); Mean Corpuscular Volume 93.9 fL (80.0-98.0); Mean Platelet Volume 9.2 fL (9.4-12.4); Monocytes Absolute Auto 0.4 X10*3/uL (0.1-1.2); Neutrophils Absolute Auto 3.9 x10*3/uL (2.0-8.3); Neutrophils Percent Auto 65.7 % (45-73); Platelet Count 251 X10*3/uL (160-400); Red Blood Count 4.29 X10*6/uL (4.60-5.80); Red Cell Distribution Width 13.3 % (11.0-16.0); White Blood Count 5.9 X10*3/uL (4.8-10.8)
[2023-09-24 11:02] LABS: Alanine Aminotransferase 18 U/L (0-40); Albumin Level 4.4 g/dL (3.5-5.0); Alkaline Phosphatase 85 U/L (39-117); Anion Gap 11 (12-20); Aspartate Amino Transferase 20 U/L (5-37); Bilirubin Total 0.5 mg/dL (0.0-1.0); Blood Urea Nitrogen 13 mg/dL (9-16); Calcium 9.9 mg/dL (8.4-10.2); Carbon Dioxide 29 mmol/L (22-29); Chloride 105 mmol/L (96-108); Cholesterol 205 mg/dL (<200); Estimated Glomerular Filt Rate > 60; Glucose Fasting 95 mg/dL (60-99); HDL Cholesterol 35 mg/dL (>40); LDL Cholesterol Calculated 132 mg/dL (<100); Potassium 4.7 mmol/L (3.3-5.1); Sodium 140 mmol/L (135-145); Total Protein 7.9 g/dL (6.5-8.0); Triglycerides 191 mg/dL (<150)
[2023-09-24 11:20] LABS: TSH reflex Free T4 1.51 uIU/mL (0.32-4.0)
[2023-09-24 11:24] LABS: Vitamin B12 319 pg/mL (200-900)
[2023-09-28 12:48] LABS: Vitamin D 25-OH, D2 <4 ng/mL; Vitamin D 25-OH, D3 13 ng/mL; Vitamin D 25-OH, Total 13 ng/mL (30-100)
== END 2023-09-24 09:25 | disposition home or self-care (01) ==
LOC: HO.HMGCLDS 09:24
PROVIDERS: PCP Internal Medicine; Visit Provider Internal Medicine
DX: I10 Essential (primary) hypertension (principal); F41.1 Generalized anxiety disorder; R73.01 Impaired fasting glucose; M13.80 Other specified arthritis, unspecified site
CPT/HCPCS: 36415; 80053; 80061; 82306; 82607; 84443; 85025

== ENCOUNTER 2024-01-03 12:12 | Outpatient (AMB) | payer MEDICARE, MEDICAID, SELFPAY ==
[2024-01-03 12:20] VITALS: BP 112/66; PULSE 44; O2SAT 92; BMI 30.9
--- NOTE | 2024-01-03 12:20 | MHC.PC.OV ---
Vital Signs 01/03/24 12:20 Height 5 ft 7 in Weight 197 lb BMI 30.9 BP 112/66 Blood Pressure Location Lt brachial Position Sitting Pulse 44 L Pulse Source Pulse Oximeter Pulse Oximetry (%) 92 Oxygen Delivery Method Room Air Intake Visit Reasons: Follow up/Missed appt 12/12 Allergies Chocolate Allergy (Unknown, Verified 01/03/24 12:22) Itchy/ Watery Eyes Yeast Allergy (Unknown, Verified 01/03/24 12:22) Per allergy testing Medication List - Last Reconciled 01/03/24 by Leeann Petit MD amlodipine 5 mg PO DAILY 90 days apixaban (Eliquis) 5 mg PO BID 90 days atenolol 100 mg PO DAILY 90 days cholecalciferol (vitamin D3) 25 mcg PO DAILY 90 days sertraline 100 mg PO DAILY simvastatin 40 mg PO BEDTIME spironolactone 50 mg PO DAILY 90 days Tobacco use date assessed: 01/03/24 Fall risk assessment: No Falls in past year Last assessed Fall Risk: 01/03/24 Dental Screening Dental Screen Date: 01/03/24 Did you have a dental visit in the last 12 months?: Yes Did you have a dental problem in the last 6 months where you did not have access to dental care?: No Was dental information given to patient?: Patient has dentist HPI Follow up/Missed appt 12/12 HPI Details Patient is 68-year-old gentleman came in today for his regular follow-up appointment He is doing well and offer no complaints today other than feeling dizzy when he wakes up in the morning His heart rate is 44 and it has been running in 40s I am reducing his atenolol to 50 mg, patient is to continue monitoring his blood pressure at home If it starts running above 140 systolic he may double the dose of amlodipine 5 mg that he is taking currently Patient is also on spironolactone 50 mg Lipid disorder: Continue simvastatin 40 mg. Anxiety/depression is stable with sertraline 100 mg daily. Patient also is on Eliquis for lifelong. He has a history of stroke Lab order placed to be done fasting before next visit Follow-up 3 months [facility] Medical History Anxiety, generalized Hypertension, essential Lipid disorder Foot pain, right Other and unspecified hyperlipidemia Essential hypertension PFO (patent foramen ovale) Cerebrovascular accident (CVA) Surgical History History of dental surgery Family History Father Hypertension Myocardial infarct Mother No problems noted. 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 How often do you have a drink containing alcohol?: Never 3. How often do you have six or more drinks on one occasion?: Never Total Score: 0 Score Reviewed/Action Taken: Yes ASHLEY-7 AMB Questionnaire ASHLEY-7 Date ASHLEY - 7 assessed: 09/18/23 Source: Developed by Drs. Reji Patton, Betsy Low, Zachariah Ko and colleagues, with an educational lucy from [employer]. Review of Systems Const Denies chills and Denies fever(s) ENT Denies epistaxis and Denies nasal discharge Card Denies chest pain Resp Denies chest congestion, Denies cough and Denies hemoptysis GI Denies diarrhea and Denies nausea Skin/Breast Denies rash Neuro Reports no additional complaints Psych Reports no additional complaints Endo Reports no additional complaints Physical exam (Primary Care) Vital Signs: Last Vital Signs Pulse 44 L 01/03/24 12:20 BP 112/66 01/03/24 12:20 Pulse Ox 92 01/03/24 12:20 Oxygen Delivery Method Room Air 01/03/24 12:20 BMI result Body Mass Index 30.9 Tobacco/Smoking Status: Tobacco use Status Tobacco use date assessed 01/03/24 01/03/24 12:24 Patient Tobacco Use Status Former Tobacco user 01/03/24 12:24 Tobacco use type Cigarette 01/03/24 12:24 e-Cigarette/Vaping Use Never Used 01/03/24 12:24 Thrive Assessment: Date of Thrive Assessment Date Thrive assessed 09/18/23 01/03/24 12:24 Const General: cooperative, comfortable and no acute distress Orientation/consciousness: patient oriented x3 HENMT Head: Yes normocephalic Eyes General: appearance normal, both eyes and all related structures Neck Neck: Yes supple Resp Effort & Inspection: normal respiratory effort, no cough and no stridor Cardio Rhythm: regular rhythm Heart sounds: S1 normal heart sound present and S2 normal heart sound present Skin General skin exam: turgor normal Neuro General: patient oriented x3, tone normal and moves all extremities Extrem Right lower extremity: no edema Left lower extremity: no edema Assessment and Plan Assessment & Plan (1) Essential hypertension: Code(s): I10 - Essential (primary) hypertension (2) Anxiety, generalized: Code(s): F41.1 - Generalized anxiety disorder (3) Impaired fasting blood sugar: Code(s): R73.01 - Impaired fasting glucose (4) Multiple cerebral infarctions: Code(s): I63.9 - Cerebral infarction, unspecified (5) Lipid disorder: Code(s): E78.9 - Disorder of lipoprotein metabolism, unspecified (6) Bradycardia: Code(s): R00.1 - Bradycardia, unspecified Plan Patient is 68-year-old gentleman came in today for his regular follow-up appointment He is doing well and offer no complaints today other than feeling dizzy when he wakes up in the morning His heart rate is 44 and it has been running in 40s I am reducing his atenolol to 50 mg, patient is to continue monitoring his blood pressure at home If it starts running above 140 systolic he may double the dose of amlodipine 5 mg that he is taking currently Patient is also on spironolactone 50 mg Lipid disorder: Continue simvastatin 40 mg. Anxiety/depression is stable with sertraline 100 mg daily. Patient also is on Eliquis for lifelong. He has a history of stroke Lab order placed to be done fasting before next visit Follow-up 3 months Orders: Orders Complete Blood Count Auto Diff Today E78.9 - Disorder of lipoprotein metabolism, unspecified, F41.1 - Generalized anxiety disorder, I10 - Essential (primary) hypertension, I63.9 - Cerebral infarction, unspecified, R00.1 - Bradycardia, unspecified, R73.01 - Impaired fasting glucose Comprehensive [place]. Panel Fast Today E78.9 - Disorder of lipoprotein metabolism, unspecified, F41.1 - Generalized anxiety disorder, I10 - Essential (primary) hypertension, I63.9 - Cerebral infarction, unspecified, R00.1 - Bradycardia, unspecified, R73.01 - Impaired fasting glucose Lipid Panel Today E78.9 - Disorder of lipoprotein metabolism, unspecified, F41.1 - Generalized anxiety disorder, I10 - Essential (primary) hypertension, I63.9 - Cerebral infarction, unspecified, R00.1 - Bradycardia, unspecified, R73.01 - Impaired fasting glucose Vitamin D 25-OH (D2 and D3) Today E78.9 - Disorder of lipoprotein metabolism, unspecified, F41.1 - Generalized anxiety disorder, I10 - Essential (primary) hypertension, I63.9 - Cerebral infarction, unspecified, R00.1 - Bradycardia, unspecified, R73.01 - Impaired fasting glucose Medications: Changed From atenolol 100 mg PO DAILY 90 days 90 tabs 0RF To atenolol 50 mg PO DAILY 90 days 90 tabs 0RF Refilled cholecalciferol (vitamin D3) 25 mcg PO DAILY 90 days 90 caps 0RF Coding Level of Care Code Est Pt Level 4 (33179) Complex EM visit Add On G2211 Diagnoses Essential hypertension I10 Anxiety, generalized F41.1 Impaired fasting blood sugar R73.01 Multiple cerebral infarctions I63.9 Lipid disorder E78.9 Bradycardia R00.1
== END 2024-01-03 12:50 | disposition home or self-care (01) ==
PROVIDERS: PCP Internal Medicine; Visit Provider Internal Medicine
DX: I10 Essential (primary) hypertension (principal); F41.1 Generalized anxiety disorder; R73.01 Impaired fasting glucose; E78.9 Disorder of lipoprotein metabolism, unspecified; R00.1 Bradycardia, unspecified
CPT/HCPCS: 99214; G2211

== ENCOUNTER 2024-05-12 11:50 | Outpatient (AMB) | payer MEDICARE, MEDICAID, SELFPAY ==
[2024-05-12 11:57] VITALS: BP 112/76; PULSE 47; O2SAT 92
--- NOTE | 2024-05-12 11:57 | MHC.PC.OV ---
Vital Signs 05/12/24 11:57 Weight 188 lb 3 oz BP 112/76 Blood Pressure Location Rt brachial Position Sitting Pulse 47 L Pulse Source Pulse Oximeter Pulse Oximetry (%) 92 Oxygen Delivery Method Room Air Intake Visit Reasons: 4 month follow up Allergies Chocolate Allergy (Unknown, Verified 05/12/24 11:59) Itchy/ Watery Eyes Yeast Allergy (Unknown, Verified 05/12/24 11:59) Per allergy testing Medication List - Last Reconciled 05/12/24 by Leeann Petit MD amlodipine 5 mg PO DAILY 90 days apixaban (Eliquis) 5 mg PO BID 90 days atenolol 50 mg PO DAILY 90 days cetirizine (Zyrtec) 10 mg PO DAILY PRN cholecalciferol (vitamin D3) 25 mcg PO DAILY 90 days fluticasone propionate 50 mcg/actuation (Flonase Allergy Relief) 1 spray intranasal DAILY 30 days sertraline 100 mg PO DAILY simvastatin 40 mg PO BEDTIME spironolactone 50 mg PO DAILY 90 days Tobacco use date assessed: 05/12/24 Fall risk assessment: No Falls in past year Last assessed Fall Risk: 05/12/24 Dental Screening Dental Screen Date: 05/12/24 Did you have a dental visit in the last 12 months?: Yes Did you have a dental problem in the last 6 months where you did not have access to dental care?: No Was dental information given to patient?: Patient has dentist HPI 4 month follow up HPI Details Patient is 68-year-old gentleman came in today for his regular follow-up appointment Allergies are acting up, patient says that his nose is congested almost all the time It started 2 weeks ago There is no fever no chills there is a tickle in the back of the throat if postnasal drip And once in a while he has dry irritated cough There is no chest pain no shortness a breath I am treating him with Zyrtec, he may take generic form [id number] if insurance does not cover it And Flonase nasal spray 1 squirt each nostril I see that blood pressure is running in low teens Patient says that it is been running like that at home as well I am holding his amlodipine 5 mg, patient have a blood pressure monitor at home and he will continue to monitor it He is complaining of feeling tired and that can also be because of low blood pressure. He is to continue his other blood pressure medications Lipid disorder: Continue simvastatin 40 mg. Anxiety/depression is stable with sertraline 100 mg daily. Patient also is on Eliquis for lifelong. He has a history of stroke He did not do the labs that I ordered at last visit in December Reminded patient to do them as soon as possible. Follow-up 3 months [facility] Medical History Anxiety, generalized Hypertension, essential Lipid disorder Foot pain, right Other and unspecified hyperlipidemia Essential hypertension PFO (patent foramen ovale) Cerebrovascular accident (CVA) Surgical History History of dental surgery Family History Father Hypertension Myocardial infarct Mother No problems noted. 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 How often do you have a drink containing alcohol?: Never 3. How often do you have six or more drinks on one occasion?: Never Total Score: 0 Score Reviewed/Action Taken: Yes ASHLEY-7 AMB Questionnaire ASHLEY-7 Date ASHLEY - 7 assessed: 09/18/23 Source: Developed by Drs. Reji Patton, Betsy Low, Zachariah Ko and colleagues, with an educational lucy from [employer]. Review of Systems Const Denies chills and Denies fever(s) ENT Denies epistaxis and Denies nasal discharge Card Denies chest pain Resp Denies chest congestion, Denies cough and Denies hemoptysis GI Denies diarrhea and Denies nausea Skin/Breast Denies rash Neuro Reports no additional complaints Psych Reports no additional complaints Endo Reports no additional complaints Physical exam (Primary Care) Vital Signs: Last Vital Signs Pulse 47 L 05/12/24 11:57 BP 112/76 05/12/24 11:57 Pulse Ox 92 05/12/24 11:57 Oxygen Delivery Method Room Air 05/12/24 11:57 Tobacco/Smoking Status: Tobacco use Status Tobacco use date assessed 05/12/24 05/12/24 12:02 Patient Tobacco Use Status Former Tobacco user 05/12/24 12:02 Tobacco use type Cigarette 05/12/24 12:02 e-Cigarette/Vaping Use Never Used 05/12/24 12:02 Thrive Assessment: Date of Thrive Assessment Date Thrive assessed 09/18/23 05/12/24 12:02 Const General: cooperative, comfortable and no acute distress Orientation/consciousness: patient oriented x3 HENMT Other: Both nostrils congested, throat without any erythema lungs clear Head: Yes normocephalic Eyes General: appearance normal, both eyes and all related structures Neck Neck: Yes supple Resp Effort & Inspection: normal respiratory effort, no cough and no stridor Cardio Rhythm: regular rhythm Heart sounds: S1 normal heart sound present and S2 normal heart sound present Skin General skin exam: turgor normal Neuro General: patient oriented x3, tone normal and moves all extremities Extrem Right lower extremity: no edema Left lower extremity: no edema Assessment and Plan Assessment & Plan (1) Essential hypertension: Code(s): I10 - Essential (primary) hypertension (2) Nasal congestion: Code(s): R09.81 - Nasal congestion (3) Environmental allergies: Code(s): Z91.09 - Other allergy status, other than to drugs and biological substances (4) Anxiety, generalized: Code(s): F41.1 - Generalized anxiety disorder (5) Impaired fasting blood sugar: Code(s): R73.01 - Impaired fasting glucose (6) Multiple cerebral infarctions: Code(s): I63.9 - Cerebral infarction, unspecified (7) Lipid disorder: Code(s): E78.9 - Disorder of lipoprotein metabolism, unspecified (8) Bradycardia: Code(s): R00.1 - Bradycardia, unspecified Plan Patient is 68-year-old gentleman came in today for his regular follow-up appointment Allergies are acting up, patient says that his nose is congested almost all the time It started 2 weeks ago There is no fever no chills there is a tickle in the back of the throat if postnasal drip And once in a while he has dry irritated cough There is no chest pain no shortness a breath I am treating him with Zyrtec, he may take generic form [id number] if insurance does not cover it And Flonase nasal spray 1 squirt each nostril I see that blood pressure is running in low teens Patient says that it is been running like that at home as well I am holding his amlodipine 5 mg, patient have a blood pressure monitor at home and he will continue to monitor it He is complaining of feeling tired and that can also be because of low blood pressure. He is to continue his other blood pressure medications Lipid disorder: Continue simvastatin 40 mg. Anxiety/depression is stable with sertraline 100 mg daily. Patient also is on Eliquis for lifelong. He has a history of stroke He did not do the labs that I ordered at last visit in December Reminded patient to do them as soon as possible. Follow-up 3 months Medications: New cetirizine (Zyrtec) 10 mg PO DAILY PRN 90 caps 0RF allergy symptoms fluticasone propionate 50 mcg/actuation (Flonase Allergy Relief) administer into each nostril 1 spray intranasal DAILY 30 days 16 grams 0RF On Hold amlodipine Hold Comment: Doctor's Order 5 mg PO DAILY 90 days 90 tabs 1RF Coding Level of Care Code Est Pt Level 4 (56061) Complex EM visit Add On G2211 Diagnoses Essential hypertension I10 Nasal congestion R09.81 Environmental allergies Z91.09 Anxiety, generalized F41.1 Impaired fasting blood sugar R73.01 Multiple cerebral infarctions I63.9 Lipid disorder E78.9 Bradycardia R00.1
== END 2024-05-12 12:24 | disposition home or self-care (01) ==
PROVIDERS: PCP Internal Medicine; Visit Provider Internal Medicine
DX: I10 Essential (primary) hypertension (principal); R09.81 Nasal congestion; Z91.09 Other allergy status, other than to drugs and biological substances; F41.1 Generalized anxiety disorder; R73.01 Impaired fasting glucose; I63.9 Cerebral infarction, unspecified; E78.9 Disorder of lipoprotein metabolism, unspecified; R00.1 Bradycardia, unspecified

== ENCOUNTER → 2024-05-12 11:50 | Outpatient (BNVA) | payer MEDICARE, MEDICAID, SELFPAY | PROVIDERS: PCP Internal Medicine; Visit Provider Internal Medicine | DX: I10 Essential (primary) hypertension (principal); R09.81 Nasal congestion; F41.1 Generalized anxiety disorder; R73.01 Impaired fasting glucose; I63.9 Cerebral infarction, unspecified; E78.9 Disorder of lipoprotein metabolism, unspecified; R00.1 Bradycardia, unspecified; Z91.09 Other allergy status, other than to drugs and biological substances | CPT/HCPCS: 99212 ==

== ENCOUNTER 2024-05-15 08:40 | Outpatient (REF) | payer MEDICARE, MEDICAID, SELFPAY ==
[2024-05-15 09:59] LABS: MANUAL DIFF FLAG NO
[2024-05-15 10:12] LABS: Basophils Percent Auto 0.6 % (0-2); Eosinophils Absolute Auto 0.1 X10*3/uL (0.0-0.4); Eosinophils Percent Auto 2.1 % (0-4); Hematocrit 38.9 % (42.0-52.0); Imm Gran Abs Auto 0.01 X10*3/uL (0.00-0.03); Imm Gran Pct Auto 0.2 % (0.0-0.4); Lymphocytes Absolute Auto 1.4 X10*3/uL (1.2-4.9); Lymphocytes Percent Auto 27.9 % (20-40); Mean Corpuscular HGB Conc 33.4 g/dl (31.0-36.0); Mean Corpuscular Hemoglobin 31.8 pg (27.0-33.0); Mean Corpuscular Volume 95.1 fL (80.0-98.0); Mean Platelet Volume 8.9 fL (9.4-12.4); Monocytes Absolute Auto 0.4 X10*3/uL (0.1-1.2); Neutrophils Absolute Auto 3.1 x10*3/uL (2.0-8.3); Neutrophils Percent Auto 61.2 % (45-73); Platelet Count 267 X10*3/uL (160-400); Red Blood Count 4.09 X10*6/uL (4.60-5.80); Red Cell Distribution Width 13.7 % (11.0-16.0); White Blood Count 5.1 X10*3/uL (4.8-10.8)
[2024-05-15 10:25] LABS: Alanine Aminotransferase 24 U/L (0-40); Albumin Level 4.4 g/dL (3.5-5.0); Alkaline Phosphatase 78 U/L (39-117); Anion Gap 11 (12-20); Aspartate Amino Transferase 28 U/L (5-37); Bilirubin Total 0.5 mg/dL (0.0-1.0); Blood Urea Nitrogen 20 mg/dL (9-16); Calcium 9.9 mg/dL (8.4-10.2); Carbon Dioxide 29 mmol/L (22-29); Chloride 106 mmol/L (96-108); Cholesterol 176 mg/dL (<200); Estimated Glomerular Filt Rate > 60; Glucose Fasting 106 mg/dL (60-99); HDL Cholesterol 30 mg/dL (>40); LDL Cholesterol Calculated 116 mg/dL (<100); Sodium 141 mmol/L (135-145); Total Protein 7.9 g/dL (6.5-8.0); Triglycerides 150 mg/dL (<150)
[2024-05-20 14:38] LABS: Vitamin D 25-OH, D2 <4 ng/mL; Vitamin D 25-OH, D3 26 ng/mL; Vitamin D 25-OH, Total 26 ng/mL (30-100)
== END 2024-05-15 08:41 | disposition home or self-care (01) ==
LOC: HO.HMGCLDS 08:40
PROVIDERS: PCP Internal Medicine; Visit Provider Internal Medicine
DX: R73.01 Impaired fasting glucose (principal); I63.9 Cerebral infarction, unspecified; I10 Essential (primary) hypertension; F41.1 Generalized anxiety disorder; E78.9 Disorder of lipoprotein metabolism, unspecified; R00.1 Bradycardia, unspecified
CPT/HCPCS: 36415; 80053; 80061; 82306; 85025

== ENCOUNTER 2024-08-11 12:24 | Outpatient (AMB) | payer MEDICARE, MEDICAID, SELFPAY ==
[2024-08-11 12:29] VITALS: BP 124/76; PULSE 49; O2SAT 96; BMI 30.1
--- NOTE | 2024-08-11 12:29 | A.OFFVIS_ITS ---
Intake Vital Signs 08/11/24 12:29 Height 5 ft 7 in Intake Visit Reasons: 3 month follow up Allergies Chocolate Allergy (Unknown, Verified 05/12/24 11:59) Itchy/ Watery Eyes Yeast Allergy (Unknown, Verified 05/12/24 11:59) Per allergy testing [facility] Medical History Anxiety, generalized Hypertension, essential Lipid disorder Foot pain, right Other and unspecified hyperlipidemia Essential hypertension PFO (patent foramen ovale) Cerebrovascular accident (CVA) Surgical History History of dental surgery Family History Father Hypertension Myocardial infarct Mother No problems noted. 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 1. Little interest or pleasure in doing things: not at all 2. Feeling down, depressed, or hopeless: not at all 3. Trouble falling or staying asleep, or sleeping too much: several days 4. Feeling tired or having little energy: several days 5. Poor appetite or overeating: several days 6. Feeling bad about yourself - or that you are a failure or have let yourself or your family down: not at all 7. Trouble concentrating on things, such as reading the newspaper or watching television: not at all 8. Moving or speaking so slowly that other people could have noticed. Or the opposite - being so fidgety or restless that you have been moving around a lot more than usual: not at all 9. Thoughts that you would be better off or of hurting yourself in some way: not at all Total score: 3 Source: Developed by Drs. Reji Patton, Betsy Low, Zachariah Ko and colleagues, with an educational lucy from [employer] Quality Reporting (2020) Depression/Bipolar (159/160/161/177) PHQ-9: Total score: 3 Coding
--- NOTE | 2024-08-11 12:30 | A.OFFPC_ITS ---
Vital Signs 08/11/24 12:29 Height 5 ft 7 in Weight 192 lb BMI 30.1 BP 124/76 Blood Pressure Location Lt brachial Position Sitting Pulse 49 L Pulse Source Pulse Oximeter Pulse Oximetry (%) 96 Oxygen Delivery Method Room Air Intake Visit Reasons: 3 month follow up Allergies Chocolate Allergy (Unknown, Verified 08/11/24 12:34) Itchy/ Watery Eyes Yeast Allergy (Unknown, Verified 08/11/24 12:34) Per allergy testing Medication List - Last Reconciled 08/11/24 by Leeann Petit MD apixaban (Eliquis) 5 mg PO BID 90 days atenolol 50 mg PO DAILY 90 days cetirizine (Zyrtec) 10 mg PO DAILY PRN cholecalciferol (vitamin D3) 25 mcg PO DAILY 90 days fluticasone propionate 50 mcg/actuation (Flonase Allergy Relief) 1 spray intranasal DAILY 30 days sertraline 100 mg PO DAILY simvastatin 40 mg PO BEDTIME spironolactone 50 mg PO DAILY 90 days Tobacco use date assessed: 08/11/24 Fall risk assessment: No Falls in past year Last assessed Fall Risk: 08/11/24 Dental Screening Dental Screen Date: 08/11/24 Did you have a dental visit in the last 12 months?: Yes Did you have a dental problem in the last 6 months where you did not have access to dental care?: No Was dental information given to patient?: Patient has dentist HPI 3 month follow up HPI Details Chief Complaint Chronic aches, sleep disturbance, and vaccination. Assessment and Plan 68-year-old male with a history of essen tial hypertension and dyslipidemia pre senting with concerns related to sleeping patterns and routine health maintenance including immunization needs. The patient reports recurring aches and pains, which fluctuate in intensity, along with significant daytime napping affecting nighttime sleep. The patient denies lightheadedness or significant fatigue. Review of medications reveals adherence Lab results indicate controlled fasting glucose with dyslipidemia showing an LDL level that is well- managed. Vitamin D levels remain low despite supplementation. The assessment includes advising amendments in sleep behavior to address sleep disturbance, along with updating immunizations per age-related guidelines. 1. Essential Hypertension The patient continues atenolol 50 mg with stable blood pressure readings. The previous discontinuation of amlodipine is noted successful, showing improved control. No new antihypertensive measures necessary at this time. 2. Vitamin D Deficiency Continuation of vitamin D supplementation as lab results indicate persistent deficiency. Re-evaluation of serum levels will be undertaken to gauge improvement. 3. Dyslipidemia LDL levels are within acceptable limits. The patient will continue simvastatin therapy, with lifestyle modifications to support lipid management. 4. Immunization The patient opted for the regular flu vaccine due to the unavailability of the senior dose. Future pneumococcal vaccination will be considered. 5. Sleep Disturbance The patient is encouraged to adjust sleep hygiene, reduce daytime naps, and establish a consistent sleep routine to minimize nighttime disturbances. Monitoring and further evaluation will be considered if symptoms persist. Diagnostic results - Labs: - Fasting glucose: 106 mg/dL - LDL: 116 mg/dL - Vitamin D: Low - Kidney functions: Within normal limits - Liver enzymes: Within normal range Problem List - Essential Hypertension - Sleep Disturbance - Dyslipidemia - Vitamin D Deficiency Medications - Atenolol 50 mg for hypertension - Eliquis for anticoagulation - Simvastatin for hyperlipidemia - Spironolactone - Flonase for nasal congestion - Zyrtec for allergies - Citrulline - Discontinued: Amlodipine 5 mg Health Maintenance - Received regular flu vaccination - Vitamin D deficiency discussed with yepez pplementation recommended Patient Instructions - Adjust sleep habits: regular wake time and minimize naps. - Continue current medication regimen. - Maintain vitamin D supplementation as directed. - Return for lab workup before the next visit in November. - Consider pharmacy for specific immuniz ations if not available in-office. Follow-up early November, labs to be done before visit order placed [facility] Medical History Anxiety, generalized Hypertension, essential Lipid disorder Foot pain, right Other and unspecified hyperlipidemia Essential hypertension PFO (patent foramen ovale) Cerebrovascular accident (CVA) Surgical History History of dental surgery Family History Father Hypertension Myocardial infarct Mother No problems noted. 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 1. Little interest or pleasure in doing things: not at all 2. Feeling down, depressed, or hopeless: not at all 3. Trouble falling or staying asleep, or sleeping too much: several days 4. Feeling tired or having little energy: several days 5. Poor appetite or overeating: several days 6. Feeling bad about yourself - or that you are a failure or have let yourself or your family down: not at all 7. Trouble concentrating on things, such as reading the newspaper or watching television: not at all 8. Moving or speaking so slowly that other people could have noticed. Or the opposite - being so fidgety or restless that you have been moving around a lot more than usual: not at all 9. Thoughts that you would be better off or of hurting yourself in some way: not at all Total score: 3 Depression Screening Interpretation: Negative Depression Screening Done: Yes 88809 - PHQ-9 Billing: Yes Source: Developed by Drs. Reji Patton, Betsy Low, Zachariah Ko and colleagues, with an educational lucy from [email or web address] Thrive Questionnaire Date Thrive assessed: 08/11/24 I am a: Patient What is your living situation today?: I have a steady place to live Within the past 12 months, did the food you bought not last and you didn't have the money to get more?: Never true Within the past 12 months, did you worry whether your food would run out before you got money to buy more?: Never true Do you have trouble paying for medicines?: No Do you have trouble getting transportation to medical appointments?: Yes Do you have trouble paying your heating and electricity bill?: No Do you have trouble taking care of your child, family member or friend?: No Do you have trouble with day-to-day activities such as bathing, preparing meals, shopping, managing finances, etc.?: No Are you currently unemployed and looking for a job?: No Are you interested in more education?: No Please select the resources that you would like help with: None Currently or been in a relationship where the following occur: I choose not to answer THRIVE Score: 1 AUDIT C Alcohol Use Questionnaire (AUDIT-C) 1. How often do you have a drink containing alcohol?: Never 3. How often do you have six or more drinks on one occasion?: Never Total Score: 0 Score Reviewed/Action Taken: Yes ASHLEY-7 AMB Questionnaire ASHLEY-7 Date ASHLEY - 7 assessed: 08/11/24 Feeling nervous, anxious, or on edge: 0 = Not at all Not being able to stop or control worryin = Not at all Worrying too much about different things: 0 = Not at all Trouble relaxin = Not at all Being so restless that it is hard to sit still: 0 = Not at all Becoming easily annoyed or irritable: 2 = More than half the days Feeling afraid as if something awful might happen: 0 = Not at all Total ASHLEY-7 score (0-4 normal; 5-9 mild; 10-14 moderate; 15-21 severe): 2 Source: Developed by Drs. Reji Patton, Betsy Low, Zachariah Ko and colleagues, with an educational lucy from [email or web address]. ASHLEY-7 Assessment Billing ASHLEY-7 Assessment Tool: ASHLEY-7 Assessment 21867 Review of Systems Const Denies chills and Denies fever(s) ENT Denies epistaxis and Denies nasal discharge Card Denies chest pain Resp Denies chest congestion, Denies cough and Denies hemoptysis GI Denies diarrhea and Denies nausea Skin/Breast Denies rash Neuro Reports no additional complaints Psych Reports no additional complaints Endo Reports no additional complaints Physical exam (Primary Care) Vital Signs: Last Vital Signs Pulse 49 L 08/11/24 12:29 BP 124/76 08/11/24 12:29 Pulse Ox 96 08/11/24 12:29 Oxygen Delivery Method Room Air 08/11/24 12:29 BMI result Body Mass Index 30.1 Tobacco/Smoking Status: Tobacco use Status Tobacco use date assessed 08/11/24 08/11/24 12:33 Patient Tobacco Use Status Former Tobacco user 08/11/24 12:33 Tobacco use type Cigarette,Cigar 08/11/24 12:33 e-Cigarette/Vaping Use Never Used 08/11/24 12:33 PHQ-9: PHQ-9 Score PHQ-9: Total score 3 08/11/24 12:58 Depression Screening Interpretation: Negative Thrive Assessment: Date of Thrive Assessment Date Thrive assessed 08/11/24 08/11/24 12:35 Currently or been in a relationship where the following occur: I choose not to answer Const General: cooperative, comfortable and no acute distress Orientation/consciousness: patient oriented x3 HENMT Head: Yes normocephalic Eyes General: appearance normal, both eyes and all related structures Neck Neck: Yes supple Resp Effort & Inspection: normal respiratory effort, no cough and no stridor Cardio Rhythm: regular rhythm Heart sounds: S1 normal heart sound present and S2 normal heart sound present Skin General skin exam: turgor normal Neuro General: patient oriented x3, tone normal and moves all extremities Extrem Right lower extremity: no edema Left lower extremity: no edema Office Procedures Flu Questionnaire Does the patient have a severe egg allergy?: No Does the patient have severe life threatening allergies?: No Does the patient have a fever or illness today?: No Has the patient ever had Guillain-[place] Syndrome?: No Has the patient ever had any past reaction to a flu shot?: No Immunizations Fluarix Triv [id number] (PF) 45 mcg (15 mcg x 3)/0.5 mL IM syringe Performing Provider: Leeann Petit MD Performing Location: [facility] Administered by: YI Nathan on 08/11/24 12:58 Dose Route Admin Location Dispensed Lot Number Expiration Date [facility] Product Development Actuary 0.5 mL IM Left Deltoid 0.5 mL [id number] 02/22/25 [id number] [facility] V[facility] Given Date VIS Provided VIS Publication Date 08/11/24 Single Vaccine 21 Eligibility Eligibility Date Funding Source Not [facility] Eligible 08/11/24 Private Coding Level of Care Code Est Pt Level 4 (02696) Complex EM visit Add On G2211 Diagnoses Hypertension, essential I10 Anxiety, generalized F41.1 Impaired fasting blood sugar R73.01 Bradycardia R00.1 Environmental allergies Z91.09 Nasal congestion R09.81 Lipid disorder E78.9 Additional Codes ASHLEY-7 Assessment Billing - ASHLEY-7 Assessment Tool: ASHLEY-7 Assessment 44465 ([id number]) PHQ-9 - 96163 - PHQ-9 Billing: Yes ([id number]) Assessment & Plan Assessment & Plan (1) Hypertension, essential: Code(s): I10 - Essential (primary) hypertension Category: Medical (2) Anxiety, generalized: Code(s): F41.1 - Generalized anxiety disorder Category: Medical (3) Impaired fasting blood sugar: Code(s): R73.01 - Impaired fasting glucose Category: Medical (4) Bradycardia: Code(s): R00.1 - Bradycardia, unspecified Category: Medical (5) Environmental allergies: Code(s): Z91.09 - Other allergy status, other than to drugs and biological substances Category: Medical (6) Nasal congestion: Code(s): R09.81 - Nasal congestion Category: Medical (7) Lipid disorder: Code(s): E78.9 - Disorder of lipoprotein metabolism, unspecified Category: Medical Plan Chief Complaint Chronic aches, sleep disturbance, and vaccination. Assessment and Plan 68-year-old male with a history of essential hypertension and dyslipidemia presenting with concerns related to sleeping patterns and routine health maintenance including immunization needs. The patient reports recurring aches and pains, which fluctuate in intensity, along with significant daytime napping affecting nighttime sleep. The patient denies lightheadedness or significant fatigue. Review of medications reveals adherence Lab results indicate controlled fasting glucose with dyslipidemia showing an LDL level that is well- managed. Vitamin D levels remain low despite supplementation. The assessment includes advising amendments in sleep behavior to address sleep disturbance, along with updating immunizations per age-related guidelines. 1. Essential Hypertension The patient continues atenolol 50 mg with stable blood pressure readings. The previous discontinuation of amlodipine is noted successful, showing improved control. No new antihypertensive measures necessary at this time. 2. Vitamin D Deficiency Continuation of vitamin D supplementation as lab results indicate persistent deficiency. Re-evaluation of serum levels will be undertaken to gauge improvement. 3. Dyslipidemia LDL levels are within acceptable limits. The patient will continue simvastatin therapy, with lifestyle modifications to support lipid management. 4. Immunization The patient opted for the regular flu vaccine due to the unavailability of the senior dose. Future pneumococcal vaccination will be considered. 5. Sleep Disturbance The patient is encouraged to adjust sleep hygiene, reduce daytime naps, and establish a consistent sleep routine to minimize nighttime disturbances. Monitoring and further evaluation will be considered if symptoms persist. Diagnostic results - Labs: - Fasting glucose: 106 mg/dL - LDL: 116 mg/dL - Vitamin D: Low - Kidney functions: Within normal limits - Liver enzymes: Within normal range Problem List - Essential Hypertension - Sleep Disturbance - Dyslipidemia - Vitamin D Deficiency Medications - Atenolol 50 mg for hypertension - Eliquis for anticoagulation - Simvastatin for hyperlipidemia - Spironolactone - Flonase for nasal congestion - Zyrtec for allergies - Citrulline - Discontinued: Amlodipine 5 mg Health Maintenance - Received regular flu vaccination - Vitamin D deficiency discussed with supplementation recommended Patient Instructions - Adjust sleep habits: regular wake time and minimize naps. - Continue current medication regimen. - Maintain vitamin D supplementation as directed. - Return for lab workup before the next visit in November. - Consider pharmacy for specific immunizations if not available in-office. Follow-up early November, labs to be done before visit order placed Orders: Orders Complete Blood Count Auto Diff 3 Months E78.9 - Disorder of lipoprotein metabolism, unspecified, I10 - Essential (primary) hypertension, R00.1 - Bradycardia, unspecified, R73.01 - Impaired fasting glucose Lipid Panel 3 Months E78.9 - Disorder of lipoprotein metabolism, unspecified, I10 - Essential (primary) hypertension, R00.1 - Bradycardia, unspecified, R73.01 - Impaired fasting glucose Hemoglobin A1c 3 Months E78.9 - Disorder of lipoprotein metabolism, unspecified, I10 - Essential (primary) hypertension, R00.1 - Bradycardia, unspecified, R73.01 - Impaired fasting glucose Influenza [id number] Immunization Today Z23 - Encounter for immunization Comprehensive [place]. Panel Fast 3 Months E78.9 - Disorder of lipoprotein metabolism, unspecified, I10 - Essential (primary) hypertension, R00.1 - Bradycardia, unspecified, R73.01 - Impaired fasting glucose Medications: Discontinued amlodipine Discontinued Reason: Doctor's Order 5 mg PO DAILY 90 days 90 tabs 1RF
== END 2024-08-11 12:59 | disposition home or self-care (01) ==
PROVIDERS: PCP Internal Medicine; Visit Provider Internal Medicine
DX: I10 Essential (primary) hypertension (principal); F41.1 Generalized anxiety disorder; R73.01 Impaired fasting glucose; R00.1 Bradycardia, unspecified; Z91.09 Other allergy status, other than to drugs and biological substances; R09.81 Nasal congestion; E78.9 Disorder of lipoprotein metabolism, unspecified; Z23 Encounter for immunization

== ENCOUNTER → 2024-08-11 12:24 | Outpatient (BNVA) | payer MEDICARE, MEDICAID, SELFPAY | PROVIDERS: PCP Internal Medicine; Visit Provider Internal Medicine | DX: Z23 Encounter for immunization (principal); I10 Essential (primary) hypertension; F41.1 Generalized anxiety disorder; R73.01 Impaired fasting glucose; R00.1 Bradycardia, unspecified; R09.81 Nasal congestion; E78.9 Disorder of lipoprotein metabolism, unspecified; Z91.09 Other allergy status, other than to drugs and biological substances | CPT/HCPCS: 90471; 90656; 96127; 99212 ==

== ENCOUNTER 2024-11-27 09:33 | Outpatient (REF) | payer MEDICARE, MEDICAID, SELFPAY ==
[2024-11-27 13:30] LABS: MANUAL DIFF FLAG NO
[2024-11-27 13:42] LABS: Basophils Percent Auto 0.8 % (0-2); Eosinophils Absolute Auto 0.1 X10*3/uL (0.0-0.4); Eosinophils Percent Auto 2.5 % (0-4); Hematocrit 39.9 % (42.0-52.0); Hemoglobin 13.4 g/dl (14.0-18.0); Imm Gran Abs Auto 0.02 X10*3/uL (0.00-0.03); Imm Gran Pct Auto 0.4 % (0.0-0.4); Lymphocytes Absolute Auto 1.6 X10*3/uL (1.2-4.9); Lymphocytes Percent Auto 30.9 % (20-40); Mean Corpuscular HGB Conc 33.6 g/dl (31.0-36.0); Mean Corpuscular Hemoglobin 31.3 pg (27.0-33.0); Mean Corpuscular Volume 93.2 fL (80.0-98.0); Mean Platelet Volume 9.3 fL (9.4-12.4); Monocytes Absolute Auto 0.4 X10*3/uL (0.1-1.2); Monocytes Percent Auto 7.2 % (2-11); Neutrophils Percent Auto 58.2 % (45-73); Platelet Count 228 X10*3/uL (160-400); Red Blood Count 4.28 X10*6/uL (4.60-5.80); Red Cell Distribution Width 13.3 % (11.0-16.0); White Blood Count 5.2 X10*3/uL (4.8-10.8)
[2024-11-27 14:17] LABS: Estimated Average Glucose 108 mg/dL; Hemoglobin A1C 126.0386 umol/L; Hemoglobin A1c % 5.4 % (<6.0); Total Hemoglobin (HGBA1C) 3563.0397 umol/L
[2024-11-27 14:41] LABS: Alanine Aminotransferase 22 U/L (0-40); Albumin Level 4.2 g/dL (3.5-5.0); Alkaline Phosphatase 75 U/L (39-117); Anion Gap 9 (12-20); Aspartate Amino Transferase 26 U/L (5-37); Bilirubin Total 0.4 mg/dL (0.0-1.0); Blood Urea Nitrogen 14 mg/dL (9-16); Calcium 9.2 mg/dL (8.4-10.2); Carbon Dioxide 28 mmol/L (22-29); Chloride 110 mmol/L (96-108); Cholesterol 171 mg/dL (<200); Estimated Glomerular Filt Rate > 60; Glucose Fasting 83 mg/dL (60-99); HDL Cholesterol 29 mg/dL (>40); LDL Cholesterol Calculated 99 mg/dL (<100); Potassium 4.3 mmol/L (3.3-5.1); Sodium 143 mmol/L (135-145); Total Protein 7.3 g/dL (6.5-8.0); Triglycerides 219 mg/dL (<150)
== END 2024-11-27 09:34 | disposition home or self-care (01) ==
LOC: HO.HMGCLDS 09:33
PROVIDERS: PCP Internal Medicine; Visit Provider Internal Medicine
DX: R00.1 Bradycardia, unspecified (principal); R73.01 Impaired fasting glucose; I10 Essential (primary) hypertension; E78.9 Disorder of lipoprotein metabolism, unspecified
CPT/HCPCS: 36415; 80053; 80061; 83036; 85025

== ENCOUNTER 2024-12-01 12:45 | Outpatient (REF) | payer MEDICARE, MEDICAID, SELFPAY ==
--- NOTE | ~2024-12-01 | XR_ITS ---
EXAMINATION: XR LUMBOSACRAL SPINE CLINICAL INFORMATION: M54.50 - Low back pain, unspecified COMPARISON: None available. TECHNIQUE: Three views of the lumbosacral spine. FINDINGS: Multilevel syndesmophyte formation and marginal osteophyte formation involving the lower thoracic and the lumbar spine. Endplate sclerosis decreased intervertebral disc height and vacuum phenomenon at L5-S1 and L4-5 levels. Multilevel endplate sclerosis lower thoracic and lumbar spine vertebral bodies. No acute cortical disruption. Grade 1 retrolisthesis L4-5. XR/XR lumbar spine 2-3V IMPRESSION: Multilevel thoracolumbar spondylosis resulting in grade 1 retrolisthesis L4-5. Electronically signed by: Skip Arechiga MD 12/01/2024 01:43 PM EDT
== END 2024-12-01 12:46 | disposition home or self-care (01) ==
LOC: HO.HMGCX 12:45
PROVIDERS: PCP Internal Medicine; Visit Provider Internal Medicine
DX: M54.50 Low back pain, unspecified (principal); M79.604 Pain in right leg; M79.605 Pain in left leg; I10 Essential (primary) hypertension; F41.1 Generalized anxiety disorder; R73.01 Impaired fasting glucose; R00.1 Bradycardia, unspecified; Z91.09 Other allergy status, other than to drugs and biological substances; E78.9 Disorder of lipoprotein metabolism, unspecified
CPT/HCPCS: 72100; 99212

== ENCOUNTER 2024-12-01 12:45 | Outpatient (AMB) | payer MEDICARE, MEDICAID, SELFPAY ==
[2024-12-01 12:55] VITALS: BP 104/70; PULSE 49; RESP 16; TEMP 36.6; O2SAT 94; BMI 31.2
--- NOTE | 2024-12-01 12:55 | A.OFFPC_ITS ---
Vital Signs 12/01/24 12:55 Height 5 ft 7 in Weight 199 lb BMI 31.2 BP 104/70 Blood Pressure Location Rt brachial Position Sitting Respiration 16 Pulse 49 L Pulse Source Pulse Oximeter Temp 97.9 F Temp Source Oral Pulse Oximetry (%) 94 Oxygen Delivery Method Room Air Intake Visit Reasons: 4 month follow up Allergies Chocolate Allergy (Unknown, Verified 08/11/24 12:34) Itchy/ Watery Eyes Yeast Allergy (Unknown, Verified 08/11/24 12:34) Per allergy testing Medication List - Last Reconciled 12/01/24 by Leeann Petit MD apixaban (Eliquis) 5 mg PO BID 90 days atenolol 50 mg PO DAILY 90 days cetirizine (Zyrtec) 10 mg PO DAILY PRN cholecalciferol (vitamin D3) 25 mcg PO DAILY 90 days fluticasone propionate 50 mcg/actuation (Flonase Allergy Relief) 1 spray intranasal DAILY 30 days sertraline 100 mg PO DAILY simvastatin 40 mg PO BEDTIME spironolactone 50 mg PO DAILY 90 days Tobacco use date assessed: 12/01/24 Fall risk assessment: No Falls in past year Last assessed Fall Risk: 12/01/24 Dental Screening Dental Screen Date: 12/01/24 Did you have a dental visit in the last 12 months?: No Did you have a dental problem in the last 6 months where you did not have access to dental care?: No Was dental information given to patient?: Patient has dentist HPI 4 month follow up HPI Details History - The patient is a 69-year-old male pres enting for a regular follow-up appointment. - Anemia has been a concern with a stabl e but slightly low hemoglobin level of 13.4, indicating a chronic low red blood cell count. - The patient reports hemorrhoids with o ccasional flare-ups and potential microscopic bleeding during bowel movements. - Essential hypertension is well-managed with Atenolol, though the patient?s blood pressure is running lower than usual at 104/70, accompanied by bradycardia with heart rates as low as 49. - Despite no documented dizziness, light headedness, or adverse symptoms related to bradycardia, the patient monitors his condition regularly. - Osteoarthritis is noted with occasiona l joint aches and pains, potentially due to activity levels, with musculoskeletal discomfort sometimes attributed to medication side effects. - Sciatica-like pain characterized by an intermittent electric sensation down both legs, mainly nocturnal, was indicated and requires further evaluation. X-ray lumbar spine and EMG nerve conduction lower extremity ordered - The patient experiences allergic rhini tis associated with tree pollen, especially during spring and summer, managed with Cetirizine. Problem List - Anemia - Hemorrhoids - Hypertension - Bradycardia - Osteoarthritis - Sciatica - Allergic Rhinitis Patient Instructions - Monitor blood pressure regularly, part icularly in the afternoon. - Continue to monitor heart rate and rep ort any symptoms such as dizziness or lightheadedness immediately. - Maintain hydration to support kidney f unction. - Use Tylenol Arthritis for joint pain a s needed. - Begin taking Cetirizine daily during a llergy season to manage symptoms. - Obtain a lumbar spine X-ray today and await scheduling for nerve conduction studies. - Return for a follow-up appointment in approximately three months. Review of Systems - General: No fever no chills - Neurological: No headaches no dizziness - Ear nose throat: No sore throat no hearing difficulty no ear pain - Cardiovascular: No syncope, no chest pain, no palpitations - Gastrointestinal: No nausea vomiting or diarrhea - Endocrine: No polyuria polydipsia no heat intolerance - Genitourinary: No dysuria , no blood in urine Physical Exam General: No acute distress HEENT: No acute findings Neck: Supple Respiratory system: Able to talk in full sentences, no audible wheeze Cardiovascular: S1-S2 regular in rate and rhythm, heart rate is low at 49 Gastrointestinal: No pain, occasional hemorrhoids with possible microscopic bleeding Back: No pain with percussion lumbar spine Extremities: No new findings, occasional aches and pains, shooting pain in both legs mostly at night PROBATE PARALEGAL: Alert awake oriented x3 motor sensory intact straight leg negative bilateral Skin: Normal turgor PFSH Medical History Anxiety, generalized Hypertension, essential Lipid disorder Foot pain, right Other and unspecified hyperlipidemia Essential hypertension PFO (patent foramen ovale) Cerebrovascular accident (CVA) Surgical History History of dental surgery Family History Father Hypertension Myocardial infarct Mother No problems noted. 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 Reji Patton, Betsy Low, Zachariah Ko and colleagues, with an educational lucy from [employer]. Physical exam (Primary Care) Vital Signs: Last Vital Signs Temp 97.9 F 12/01/24 12:55 Pulse 49 L 12/01/24 12:55 Resp 16 12/01/24 12:55 BP 104/70 12/01/24 12:55 Pulse Ox 94 12/01/24 12:55 Oxygen Delivery Method Room Air 12/01/24 12:55 BMI result Body Mass Index 31.2 Tobacco/Smoking Status: Tobacco use Status Tobacco use date assessed 12/01/24 12/01/24 13:00 Patient Tobacco Use Status Former Tobacco user 12/01/24 13:00 Tobacco use type Cigarette,Cigar 12/01/24 13:00 e-Cigarette/Vaping Use Never Used 12/01/24 13:00 Thrive Assessment: Date of Thrive Assessment Date Thrive assessed 08/11/24 12/01/24 13:00 Coding Level of Care Code Est Pt Level 4 (96267) Complex EM visit Add On G2211 Diagnoses Lumbar pain with radiation down both legs M54.50; M79.604; M79.605 Hypertension, essential I10 Anxiety, generalized F41.1 Impaired fasting blood sugar R73.01 Bradycardia R00.1 Environmental allergies Z91.09 Lipid disorder E78.9 Assessment & Plan Assessment & Plan (1) Lumbar pain with radiation down both legs: Code(s): M54.50 - Low back pain, unspecified; M79.604 - Pain in right leg; M79.605 - Pain in left leg Category: Medical (2) Hypertension, essential: Code(s): I10 - Essential (primary) hypertension Category: Medical (3) Anxiety, generalized: Code(s): F41.1 - Generalized anxiety disorder Category: Medical (4) Impaired fasting blood sugar: Code(s): R73.01 - Impaired fasting glucose Category: Medical (5) Bradycardia: Code(s): R00.1 - Bradycardia, unspecified Category: Medical (6) Environmental allergies: Code(s): Z91.09 - Other allergy status, other than to drugs and biological substances Category: Medical (7) Lipid disorder: Code(s): E78.9 - Disorder of lipoprotein metabolism, unspecified Category: Medical Plan History - The patient is a 69-year-old male presenting for a regular follow-up appointm ent. - Anemia has been a concern with a stable but slightly low hemoglobin level of 13.4, indicating a chronic low red blood cell count. - The patient reports hemorrhoids with occasional flare-ups and potential microscopic bleeding during bowel movements. - Essential hypertension is well-managed with Atenolol, though the patient?s blood pressure is running lower than usual at 104/70, accompanied by bradycardia with heart rates as low as 49. - Despite no documented dizziness, lightheadedness, or adverse symptoms related to bradycardia, the patient monitors his condition regularly. - Osteoarthritis is noted with occasional joint aches and pains, potentially due to activity levels, with musculoskeletal discomfort sometimes attributed to medication side effects. - Sciatica-like pain characterized by an intermittent electric sensation down both legs, mainly nocturnal, was indicated and requires further evaluation. X- ray lumbar spine and EMG nerve conduction lower extremity ordered - The patient experiences allergic rhinitis associated with tree pollen, especially during spring and summer, managed with Cetirizine. Problem List - Anemia - Hemorrhoids - Hypertension - Bradycardia - Osteoarthritis - Sciatica - Allergic Rhinitis Patient Instructions - Monitor blood pressure regularly, particularly in the afternoon. - Continue to monitor heart rate and report any symptoms such as dizziness or lightheadedness immediately. - Maintain hydration to support kidney function. - Use Tylenol Arthritis for joint pain as needed. - Begin taking Cetirizine daily during allergy season to manage symptoms. - Obtain a lumbar spine X-ray today and await scheduling for nerve conduction studies. - Return for a follow-up appointment in approximately three months. Orders: Orders XR lumbar spine 2-3V Today M54.50 - Low back pain, unspecified, M79.604 - Pain in right leg, M79.605 - Pain in left leg NE nerve conduction velocity Today M54.50 - Low back pain, unspecified, M79.604 - Pain in right leg, M79.605 - Pain in left leg NE electromyogram (EMG) Today M54.50 - Low back pain, unspecified, M79.604 - Pain in right leg, M79.605 - Pain in left leg
== END 2024-12-01 13:30 | disposition home or self-care (01) ==
LOC: HO.HMCC 12:45
PROVIDERS: PCP Internal Medicine; Visit Provider Internal Medicine
DX: M54.50 Low back pain, unspecified (principal); M79.604 Pain in right leg; M79.605 Pain in left leg; I10 Essential (primary) hypertension; F41.1 Generalized anxiety disorder; R73.01 Impaired fasting glucose; R00.1 Bradycardia, unspecified; Z91.09 Other allergy status, other than to drugs and biological substances; E78.9 Disorder of lipoprotein metabolism, unspecified

== ENCOUNTER → 2024-12-01 13:20 | Outpatient (BNV) | payer MEDICARE, MEDICAID, SELFPAY | PROVIDERS: PCP Internal Medicine; Visit Provider Radiology Diagnostic Radiology | DX: M47.815 Spondylosis without myelopathy or radiculopathy, thoracolumbar region (principal) | CPT/HCPCS: 72100 ==

== ENCOUNTER 2024-12-29 09:38 | Outpatient (REF) | payer MEDICARE, MEDICAID, SELFPAY ==
--- NOTE | 2024-12-29 09:44 | EMG_ITS ---
Bilateral tibial and peroneal motor studies were performed. Bilateral superficial peroneal and sural sensory studies were performed. Tibial H-reflexes were obtained and paraspinal muscles were tested with a needle. IMPRESSION: Moderately severe axonal sensory motor peripheral neuropathy. MD [facility]/CHERYL / [id number]
== END 2024-12-29 09:39 | disposition home or self-care (01) ==
LOC: HO.NEURO 09:38
PROVIDERS: PCP Internal Medicine; Visit Provider Internal Medicine
DX: M54.50 Low back pain, unspecified (principal); M79.604 Pain in right leg; M79.605 Pain in left leg
CPT/HCPCS: 95886; 95911

== ENCOUNTER 2025-03-02 12:47 | Outpatient (AMB) | payer MEDICARE, MEDICAID, SELFPAY ==
[2025-03-02 12:50] VITALS: BP 124/70; PULSE 52; TEMP 36.5; O2SAT 97; BMI 30.6
--- NOTE | 2025-03-02 12:50 | A.OFFPC_ITS ---
Vital Signs 03/02/25 12:50 Height 5 ft 7 in Weight 195 lb 4 oz BMI 30.6 BP 124/70 Blood Pressure Location Rt brachial Position Sitting Pulse 52 Pulse Source Pulse Oximeter Temp 97.7 F Temp Source Oral Pulse Oximetry (%) 97 Oxygen Delivery Method Room Air Intake Visit Reasons: 3m follow up Product Steward Required: No Allergies Chocolate Allergy (Unknown, Verified 03/02/25 12:55) Itchy/ Watery Eyes Yeast Allergy (Unknown, Verified 03/02/25 12:55) Per allergy testing Medication List - Last Reconciled 03/02/25 by Leeann Petit MD apixaban (Eliquis) 5 mg PO BID 90 days atenolol 50 mg PO DAILY 90 days cetirizine (Zyrtec) 10 mg PO DAILY PRN cholecalciferol (vitamin D3) 25 mcg PO DAILY 90 days fluticasone propionate 50 mcg/actuation (Flonase Allergy Relief) 1 spray intranasal DAILY 30 days sertraline 100 mg PO DAILY simvastatin 40 mg PO BEDTIME spironolactone 50 mg PO DAILY 90 days Tobacco use date assessed: 03/02/25 Fall risk assessment: No Falls in past year Dental Screening Dental Screen Date: 03/02/25 Did you have a dental visit in the last 12 months?: No Did you have a dental problem in the last 6 months where you did not have access to dental care?: No Was dental information given to patient?: Patient has dentist HPI 3m follow up HPI Details Ongoing care/follow-up appointment - The patient is a 69-year-old male pres enting with symptoms of lightheadedness, low blood pressure, and leg pain. - Reports feeling lightheaded frequently in the past week. - Monitored blood pressure at home, with recorded values ranging from low to normal (e.g., 117/65, 120/169, 113/62, and 114/70). - Associated symptom of low pulse rate o bserved, reportedly sometimes in the 40s and 50s. - Leg pain described as shooting up and down both legs, occasionally feeling like being electrocuted.. - Both legs susceptible to pain, noted p rimarily at night, with symptoms in both legs having persisted for the initial two weeks post-test. - Underwent an EMG nerve conduction stud y which indicated moderate peripheral neuropathy. - Hemoglobin levels reported as consiste ntly low but stable over time, with values around 13.5. Medical History: - Peripheral Neuropathy: Previously diag nosed as moderately severe. - History of low hemoglobin levels indic ating mild anemia. - Hypertension: Managed with medication. - History of back pain: Resolved - Allergies: Treated with low-dose nasal spray and Zyrtec. Medications: - Atenolol: For hypertension. - Spironolactone: For hypertension or fl uid control. - Simvastatin: For hyperlipidemia. - Citrine: Indication unspecified. - Low-dose nasal spray: For allergy symp toms. - Vitamin D: Likely supplement use. - Zyrtec: For allergy treatment. - Eliquis: Anticoagulation therapy. Social History: - Engages in walking as a form of exerci se. - Has a girlfriend who is a physical the rapist. - Describes lifestyle as somewhat active in general. Diagnostic Results: - Tests: EMG nerve conduction study conf irms moderate peripheral neuropathy. Problem List - Lightheadedness - Hypotension - Peripheral Neuropathy - Low Hemoglobin (Anemia) - Low Heart Rate - chronic lower back pain stable at this time Patient Instructions - Monitor blood pressure regularly and r eport significant changes. - Follow recommendations to reduce the A tenolol dose to 25 mg. - Begin taking gabapentin, starting with 100 mg and gradually increasing. To 200 mg, 180 capsules sent for 3 months - Continue all current medications as pr escribed. - Be aware of the importance of medicati on adherence for symptom control. - Make an appointment for follow-up in [facility]. Review of Systems - General: No fever no chills - Neurological: No headaches no dizziness - Ear nose throat: No sore throat no hearing difficulty no ear pain - Cardiovascular: No syncope, no chest pain, no palpitations - Gastrointestinal: No nausea vomiting or diarrhea - Endocrine: No polyuria polydipsia no heat intolerance - Genitourinary: No dysuria , no blood in urine Physical Exam General: No acute distress HEENT: No acute findings Neck: Supple Respiratory system: Lungs are clear Cardiovascular: S1-S2 regular in rate and rhythm, heart rate sometimes in the 40s Gastrointestinal: No pain Extremities: Bilateral leg pain, shooting in nature below knees TRANSPORT TECHNICIAN: Alert awake oriented x3 motor sensory intact, moderately severe peripheral neuropathy Skin: Normal turgor [facility] Medical History Anxiety, generalized Hypertension, essential Lipid disorder Foot pain, right Other and unspecified hyperlipidemia Essential hypertension PFO (patent foramen ovale) Cerebrovascular accident (CVA) Surgical History History of dental surgery Family History Father Hypertension Myocardial infarct Mother No problems noted. 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 1. Little interest or pleasure in doing things: not at all 2. Feeling down, depressed, or hopeless: several days 3. Trouble falling or staying asleep, or sleeping too much: nearly every day 4. Feeling tired or having little energy: nearly every day 5. Poor appetite or overeating: not at all 6. Feeling bad about yourself - or that you are a failure or have let yourself or your family down: not at all 7. Trouble concentrating on things, such as reading the newspaper or watching television: nearly every day 8. Moving or speaking so slowly that other people could have noticed. Or the opposite - being so fidgety or restless that you have been moving around a lot more than usual: not at all 9. Thoughts that you would be better off or of hurting yourself in some way: not at all Total score: 10 Depression Screening Interpretation: Positive Depression Screening Follow-up: Existing condition and In treatment Depression Screening Done: Yes 99335 - PHQ-9 Billing: Yes Source: Developed by Drs. Reji Patton, Betsy Low, Zachariah Ko and colleagues, with an educational lucy from [employer]. Thrive Questionnaire Date Thrive assessed: 03/02/25 I am a: Patient What is your living situation today?: I have a steady place to live Within the past 12 months, did the food you bought not last and you didn't have the money to get more?: Never true Within the past 12 months, did you worry whether your food would run out before you got money to buy more?: Never true Do you have trouble paying for medicines?: No Do you have trouble getting transportation to medical appointments?: No Do you have trouble taking care of your child, family member or friend?: No Do you have trouble with day-to-day activities such as bathing, preparing meals, shopping, managing finances, etc.?: No Are you currently unemployed and looking for a job?: No THRIVE Score: 0 AUDIT C Alcohol Use Questionnaire (AUDIT-C) 1. How often do you have a drink containing alcohol?: Never Total Score: 0 ASHLEY-7 AMB Questionnaire ASHLEY-7 Date ASHLEY - 7 assessed: 08/11/24 Source: Developed by Drs. Reji Patton, Betsy Low, Zachariah Ko and colleagues, with an educational lucy from [employer]. Physical exam (Primary Care) Vital Signs: Last Vital Signs Temp 97.7 F 03/02/25 12:50 Pulse 52 03/02/25 12:50 BP 124/70 03/02/25 12:50 Pulse Ox 97 03/02/25 12:50 Oxygen Delivery Method Room Air 03/02/25 12:50 BMI result Body Mass Index 30.6 Tobacco/Smoking Status: Tobacco use Status Tobacco use date assessed 03/02/25 03/02/25 13:00 Patient Tobacco Use Status Former Tobacco user 03/02/25 13:00 Tobacco use type Cigarette,Cigar 03/02/25 13:00 e-Cigarette/Vaping Use Never Used 03/02/25 13:00 PHQ-9: PHQ-9 Score PHQ-9: Total score 10 03/02/25 13:00 Depression Screening Interpretation: Positive Depression Screening Follow-up: Existing condition and In treatment Thrive Assessment: Date of Thrive Assessment Date Thrive assessed 03/02/25 03/02/25 13:00 Coding Level of Care Code Est Pt Level 4 (80739) Complex EM visit Add On G2211 Diagnoses Peripheral polyneuropathy G62.9 Peripheral neuropathy type: polyneuropathy, unspecified Hypertension, essential I10 Anxiety, generalized F41.1 Impaired fasting blood sugar R73.01 Bradycardia R00.1 Environmental allergies Z91.09 Lipid disorder E78.9 Additional Codes PHQ-9 - 89204 - PHQ-9 Billing: Yes ([id number]) Assessment & Plan Assessment & Plan (1) Peripheral neuropathy: Code(s): G62.9 - Polyneuropathy, unspecified Category: Medical Qualifiers: Peripheral neuropathy type: polyneuropathy, unspecified Qualified Code(s): G62.9 - Polyneuropathy, unspecified (2) Hypertension, essential: Code(s): I10 - Essential (primary) hypertension Category: Medical (3) Anxiety, generalized: Code(s): F41.1 - Generalized anxiety disorder Category: Medical (4) Impaired fasting blood sugar: Code(s): R73.01 - Impaired fasting glucose Category: Medical (5) Bradycardia: Code(s): R00.1 - Bradycardia, unspecified Category: Medical (6) Environmental allergies: Code(s): Z91.09 - Other allergy status, other than to drugs and biological substances Category: Medical (7) Lipid disorder: Code(s): E78.9 - Disorder of lipoprotein metabolism, unspecified Category: Medical Plan Ongoing care/follow-up appointment - The patient is a 69-year-old male presenting with symptoms of lightheadedness, low blood pressure, and leg pain. - Reports feeling lightheaded frequently in the past week. - Monitored blood pressure at home, with recorded values ranging from low to normal (e.g., 117/65, 120/169, 113/62, and 114/70). - Associated symptom of low pulse rate observed, reportedly sometimes in the 40s and 50s. - Leg pain described as shooting up and down both legs, occasionally feeling like being electrocuted.. - Both legs susceptible to pain, noted primarily at night, with symptoms in both legs having persisted for the initial two weeks post-test. - Underwent an EMG nerve conduction study which indicated moderate peripheral neuropathy. - Hemoglobin levels reported as consistently low but stable over time, with values around 13.5. Medical History: - Peripheral Neuropathy: Previously diagnosed as moderately severe. - History of low hemoglobin levels indicating mild anemia. - Hypertension: Managed with medication. - History of back pain: Resolved - Allergies: Treated with low-dose nasal spray and Zyrtec. Medications: - Atenolol: For hypertension. - Spironolactone: For hypertension or fluid control. - Simvastatin: For hyperlipidemia. - Citrine: Indication unspecified. - Low-dose nasal spray: For allergy symptoms. - Vitamin D: Likely supplement use. - Zyrtec: For allergy treatment. - Eliquis: Anticoagulation therapy. Social History: - Engages in walking as a form of exercise. - Has a girlfriend who is a physical therapist. - Describes lifestyle as somewhat active in general. Diagnostic Results: - Tests: EMG nerve conduction study confirms moderate peripheral neuropathy. Problem List - Lightheadedness - Hypotension - Peripheral Neuropathy - Low Hemoglobin (Anemia) - Low Heart Rate - chronic lower back pain stable at this time Patient Instructions - Monitor blood pressure regularly and report significant changes. - Follow recommendations to reduce the Atenolol dose to 25 mg. - Begin taking gabapentin, starting with 100 mg and gradually increasing. To 200 mg, 180 capsules sent for 3 months - Continue all current medications as prescribed. - Be aware of the importance of medication adherence for symptom control. - Make an appointment for follow-up in May. Medications: New gabapentin 200 mg (2 x 100 mg) PO BEDTIME 180 caps 0RF 90 days Changed From atenolol 50 mg PO DAILY 90 days 90 tabs 0RF To atenolol 25 mg PO DAILY 90 tabs 0RF 90 days
--- OUTSIDE RECORDS SUMMARY | 2025-03-02 13:30 | XMS_ITS | Patient Health Record ---
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
== END 2025-03-02 13:19 | disposition home or self-care (01) ==
LOC: HO.HMCC 12:48
PROVIDERS: PCP Internal Medicine; Visit Provider Internal Medicine
DX: G62.9 Polyneuropathy, unspecified (principal); I10 Essential (primary) hypertension; F41.1 Generalized anxiety disorder; R73.01 Impaired fasting glucose; R00.1 Bradycardia, unspecified; Z91.09 Other allergy status, other than to drugs and biological substances; E78.9 Disorder of lipoprotein metabolism, unspecified

== ENCOUNTER → 2025-03-02 12:47 | Outpatient (BNVA) | payer MEDICARE, MEDICAID, SELFPAY | PROVIDERS: PCP Internal Medicine; Visit Provider Internal Medicine | DX: G62.9 Polyneuropathy, unspecified (principal); I10 Essential (primary) hypertension; F41.1 Generalized anxiety disorder; R73.01 Impaired fasting glucose; R00.1 Bradycardia, unspecified; Z91.09 Other allergy status, other than to drugs and biological substances | CPT/HCPCS: 96127; 99212 ==

== ENCOUNTER 2025-06-22 13:23 | Outpatient (REF) | payer MEDICARE, SELFPAY ==
[2025-06-22 16:30] LABS: MANUAL DIFF FLAG NO
[2025-06-22 16:42] LABS: Hematocrit 41.7 % (42.0-52.0); Hemoglobin 14.0 g/dl (14.0-18.0); Imm Gran Abs Auto 0.03 X10*3/uL (0.00-0.03); Imm Gran Pct Auto 0.5 % (0.0-0.4); Lymphocytes Absolute Auto 1.5 X10*3/uL (1.2-4.9); Mean Corpuscular HGB Conc 33.6 g/dl (31.0-36.0); Mean Corpuscular Hemoglobin 31.0 pg (27.0-33.0); Mean Corpuscular Volume 92.5 fL (80.0-98.0); NRBC Abs Auto 0.000 X10*3/uL (0.0-0.012); NRBC Pct Auto 0.0 /100WBC (0.0-0.2); Platelet Count 252 X10*3/uL (160-400); Red Blood Count 4.51 X10*6/uL (4.60-5.80); White Blood Count 6.0 X10*3/uL (4.8-10.8)
[2025-06-22 17:22] LABS: Alanine Aminotransferase 26 U/L (0-40); Albumin Level 4.7 g/dL (3.5-5.0); Alkaline Phosphatase 73 U/L (39-117); Anion Gap 11 (12-20); Aspartate Amino Transferase 32 U/L (5-37); Blood Urea Nitrogen 17 mg/dL (9-16); Calcium 9.3 mg/dL (8.4-10.2); Carbon Dioxide 27 mmol/L (22-29); Chloride 107 mmol/L (96-108); Estimated Glomerular Filt Rate > 60; Potassium 4.1 mmol/L (3.3-5.1); Sodium 141 mmol/L (135-145); Total Protein 7.7 g/dL (6.5-8.0)
[2025-06-22 17:24] LABS: Ferritin 160 ng/mL (20-250)
== END 2025-06-22 13:24 | disposition home or self-care (01) ==
LOC: HO.HMGCLDS 13:23
PROVIDERS: PCP Internal Medicine; Visit Provider Internal Medicine
DX: I10 Essential (primary) hypertension (principal); F41.1 Generalized anxiety disorder; Z91.09 Other allergy status, other than to drugs and biological substances; Q21.10 Atrial septal defect, unspecified; E78.9 Disorder of lipoprotein metabolism, unspecified; G62.9 Polyneuropathy, unspecified; D50.9 Iron deficiency anemia, unspecified; Z95.818 Presence of other cardiac implants and grafts; I63.9 Cerebral infarction, unspecified; Z79.01 Long term (current) use of anticoagulants; Z79.899 Other long term (current) drug therapy
CPT/HCPCS: 36415; 80053; 82728; 83036; 85025; 96127; 99212

== ENCOUNTER 2025-06-22 13:23 | Outpatient (AMB) | payer MEDICARE, SELFPAY ==
[2025-06-22 13:25] VITALS: BP 136/74; PULSE 54; RESP 16; TEMP 36.4; O2SAT 98; BMI 30.8
--- NOTE | 2025-06-22 13:25 | A.OFFPC_ITS ---
Vital Signs 06/22/25 13:25 Height 5 ft 7 in Weight 196 lb 8 oz BMI 30.8 BP 136/74 Blood Pressure Location Rt brachial Position Sitting Respiration 16 Pulse 54 Pulse Source Pulse Oximeter Temp 97.6 F Temp Source Oral Pulse Oximetry (%) 98 Oxygen Delivery Method Room Air Intake Visit Reasons: 3m follow up - see comments Allergies Chocolate Allergy (Unknown, Verified 03/02/25 12:55) Itchy/ Watery Eyes Yeast Allergy (Unknown, Verified 03/02/25 12:55) Per allergy testing Medication List - Last Reconciled 06/22/25 by Leeann Petit MD apixaban (Eliquis) 5 mg PO BID atenolol 25 mg PO DAILY 90 days cetirizine (Zyrtec) 10 mg PO DAILY PRN cholecalciferol (vitamin D3) 25 mcg PO DAILY 90 days fluticasone propionate 50 mcg/actuation (Flonase Allergy Relief) 1 spray intranasal DAILY 30 days gabapentin 200 mg (2 x 100 mg) PO BEDTIME 90 days sertraline 100 mg PO DAILY simvastatin 40 mg PO BEDTIME spironolactone 50 mg PO DAILY 90 days Tobacco use date assessed: 03/02/25 Dental Screening Dental Screen Date: 03/02/25 HPI 3m follow up - see comments HPI Details History of Present Illness The patient is a 69-year-old male presenting for a 3-month follow-up appointment for management of chronic conditions, including peripheral neuropathy and hypertension. Hypertension: - The patient's atenolol was reduced to 25 mg in February due to lightheadedness, which he reports still occurs intermittently. - He monitors his blood pressure at home and reports readings of 125/70 mmHg with a heart rate of 56 bpm, 130/67 mmHg, and 117/60 mmHg. - He also takes spironolactone 50 mg for blood pressure control. Peripheral Neuropathy: - The patient's peripheral neuropathy is managed with gabapentin 200 mg daily. - He reports his symptoms are much impro manjit and describes them as consistent at night with an occasional warm sensation. Other Medical History: - The patient has a history of a stroke and is on long-term anticoagulation with Eliquis. - He also has a history of anxiety treat ed with sertraline, hyperlipidemia treated with simvastatin, impaired fasting blood sugar, a patent foramen ovale, and an implantable loop recorder. - Labs from November showed a hemoglobin of 13.4, stable electrolytes, stable kidney function, an A1c of 5.4, stable liver enzymes, and an LDL of 99. - He has a history of sinus issues and w as told he has a deviated septum and small nasal passages. Medical History: - Peripheral neuropathy - Hypertension - Anxiety - Hyperlipidemia - History of cerebrovascular accident (s troke) - Impaired fasting blood sugar - Patent foramen ovale - History of implantable loop recorder - Deviated nasal septum Social History: - The patient discussed difficulties wit h resolving financial assistance paperwork with the hospital's administrative offices. Diagnostic Results: - Labs (November): CBC showed hemoglobin of 13.4, electrolytes and kidney functions were stable, A1c was 5.4, liver enzymes were stable, and LDL was 99. - Home Blood Pressure Monitoring: Recent readings include 125/70 mmHg with a pulse of 56, 130/67 mmHg, and 117/60 mmHg. Problem List Peripheral Neuropathy Hypertension History of Cerebrovascular Accident Anxiety Hyperlipidemia Impaired Fasting Glucose Patent Foramen Ovale Deviated Nasal Septum Arthralgia Plan - Discontinue atenolol due to symptomati c lightheadedness and bradycardia. - Continue spironolactone 50 mg for hype rtension and continue all other current medications. - The patient will continue to monitor h is blood pressure daily at home. - Continue gabapentin 200 mg daily for p eripheral neuropathy as symptoms are well-controlled. - A referral will be made to a dermatolo gist for evaluation of an intermittent, pruritic skin rash. - Instructed to use nasal spray daily, n ot intermittently, for optimal effect. - An order was placed for a new set of l abs, which the patient will have drawn today. - The patient was instructed to bring al l medication and supplement bottles to his next visit for a complete medication reconciliation. - Schedule a follow-up appointment in proximately 3 months. Review of Systems - General: No fever no chills - Neurological: No headaches no dizziness - Ear nose throat: No sore throat no hearing difficulty no ear pain - Cardiovascular: No syncope, no chest pain, no palpitations - Gastrointestinal: No nausea vomiting or diarrhea - Endocrine: No polyuria polydipsia no heat intolerance - Genitourinary: No dysuria , no blood in urine Physical Exam General: No acute distress HEENT: No acute findings, nasal septum deviated Neck: Supple Respiratory system: Able to talk in full sentences, no audible wheeze Cardiovascular: S1-S2 regular in rate and rhythm, heart rate low Gastrointestinal: No pain Extremities: No new findings MASS SPEC: Alert awake oriented x3 motor intact Skin: Normal turgor, presence of small red bumps that turn into bumps, advised to see a licensed occupational therapist [facility] Medical History Anxiety, generalized Hypertension, essential Lipid disorder Foot pain, right Other and unspecified hyperlipidemia Essential hypertension PFO (patent foramen ovale) Cerebrovascular accident (CVA) Surgical History History of dental surgery Family History Father Hypertension Myocardial infarct Mother No problems noted. 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 1. Little interest or pleasure in doing things: several days 2. Feeling down, depressed, or hopeless: several days 3. Trouble falling or staying asleep, or sleeping too much: more than half the days 4. Feeling tired or having little energy: several days 5. Poor appetite or overeating: not at all 6. Feeling bad about yourself - or that you are a failure or have let yourself or your family down: not at all 7. Trouble concentrating on things, such as reading the newspaper or watching television: several days 8. Moving or speaking so slowly that other people could have noticed. Or the opposite - being so fidgety or restless that you have been moving around a lot more than usual: not at all 9. Thoughts that you would be better off or of hurting yourself in some way: not at all Total score: 6 Depression Screening Interpretation: Negative Depression Screening Done: Yes 24282 - PHQ-9 Billing: Yes Source: Developed by Drs. Reji Patton, Betsy Low, Zachariah Ko and colleagues, with an educational lucy from [employer]. Thrive Questionnaire Date Thrive assessed: 06/22/25 I am a: Patient What is your living situation today?: I have a steady place to live Within the past 12 months, did the food you bought not last and you didn't have the money to get more?: Never true Within the past 12 months, did you worry whether your food would run out before you got money to buy more?: Never true Do you have trouble paying for medicines?: No Do you have trouble getting transportation to medical appointments?: Yes Do you have trouble paying your heating and electricity bill?: No Do you have trouble taking care of your child, family member or friend?: No Do you have trouble with day-to-day activities such as bathing, preparing meals, shopping, managing finances, etc.?: No Are you currently unemployed and looking for a job?: No Are you interested in more education?: No THRIVE Score: 1 ASHLEY-7 AMB Questionnaire ASHLEY-7 Date ASHLEY - 7 assessed: 08/11/24 Source: Developed by Drs. Reji Patton, Betsy Low, Zachariah Ko and colleagues, with an educational lucy from [employer]. Physical exam (Primary Care) Vital Signs: Last Vital Signs Temp 97.6 F 06/22/25 13:25 Pulse 54 06/22/25 13:25 Resp 16 06/22/25 13:25 BP 136/74 06/22/25 13:25 Pulse Ox 98 06/22/25 13:25 Oxygen Delivery Method Room Air 06/22/25 13:25 BMI result Body Mass Index 30.8 Tobacco/Smoking Status: Tobacco use Status Tobacco use date assessed 03/02/25 06/22/25 13:25 Patient Tobacco Use Status Former Tobacco user 06/22/25 13:25 Tobacco use type Cigarette,Cigar 06/22/25 13:25 e-Cigarette/Vaping Use Never Used 06/22/25 13:25 PHQ-9: PHQ-9 Score PHQ-9: Total score 6 06/22/25 14:05 Depression Screening Interpretation: Negative Thrive Assessment: Date of Thrive Assessment Date Thrive assessed 06/22/25 06/22/25 13:25 Coding Level of Care Code Est Pt Level 4 (81558) Complex EM visit Add On G2211 Diagnoses Hypertension, essential I10 Anxiety, generalized F41.1 Environmental allergies Z91.09 PFO (patent foramen ovale) Q21.1 Lipid disorder E78.9 Status post placement of implantable loop recorder Z95.818 Peripheral polyneuropathy G62.9 Peripheral neuropathy type: polyneuropathy, unspecified Microcytic anemia D50.9 Multiple cerebral infarctions I63.9 Additional Codes PHQ-9 - 50811 - PHQ-9 Billing: Yes ([id number]) Assessment & Plan Assessment & Plan (1) Hypertension, essential: Code(s): I10 - Essential (primary) hypertension Category: Medical (2) Anxiety, generalized: Code(s): F41.1 - Generalized anxiety disorder Category: Medical (3) Environmental allergies: Code(s): Z91.09 - Other allergy status, other than to drugs and biological substances Category: Medical (4) PFO (patent foramen ovale): Code(s): Q21.1 - Atrial septal defect Category: Medical (5) Lipid disorder: Code(s): E78.9 - Disorder of lipoprotein metabolism, unspecified Category: Medical (6) Status post placement of implantable loop recorder: Code(s): Z95.818 - Presence of other cardiac implants and grafts Category: Medical (7) Peripheral neuropathy: Code(s): G62.9 - Polyneuropathy, unspecified Category: Medical Qualifiers: Peripheral neuropathy type: polyneuropathy, unspecified Qualified Code(s): G62.9 - Polyneuropathy, unspecified (8) Microcytic anemia: Code(s): D50.9 - Iron deficiency anemia, unspecified Category: Medical (9) Multiple cerebral infarctions: Code(s): I63.9 - Cerebral infarction, unspecified Category: Medical Plan Hypertension: - The patient's atenolol was reduced to 25 mg in February due to lightheadedness, which he reports still occurs intermittently. - He monitors his blood pressure at home and reports readings of 125/70 mmHg with a heart rate of 56 bpm, 130/67 mmHg, and 117/60 mmHg. - He also takes spironolactone 50 mg for blood pressure control. Peripheral Neuropathy: - The patient's peripheral neuropathy is managed with gabapentin 200 mg daily. - He reports his symptoms are much improved and describes them as consistent at night with an occasional warm sensation. Other Medical History: - The patient has a history of a stroke and is on long-term anticoagulation with Eliquis. - He also has a history of anxiety treated with sertraline, hyperlipidemia treated with simvastatin, impaired fasting blood sugar, a patent foramen ovale, and an implantable loop recorder. - Labs from November showed a hemoglobin of 13.4, stable electrolytes, stable kidney function, an A1c of 5.4, stable liver enzymes, and an LDL of 99. - He has a history of sinus issues and was told he has a deviated septum and small nasal passages. Medical History: - Peripheral neuropathy - Hypertension - Anxiety - Hyperlipidemia - History of cerebrovascular accident (stroke) - Impaired fasting blood sugar - Patent foramen ovale - History of implantable loop recorder - Deviated nasal septum Social History: - The patient discussed difficulties with resolving financial assistance paperwork with the hospital's administrative offices. Diagnostic Results: - Labs (November): CBC showed hemoglobin of 13.4, electrolytes and kidney functions were stable, A1c was 5.4, liver enzymes were stable, and LDL was 99. - Home Blood Pressure Monitoring: Recent readings include 125/70 mmHg with a pulse of 56, 130/67 mmHg, and 117/60 mmHg. Problem List Peripheral Neuropathy Hypertension History of Cerebrovascular Accident Anxiety Hyperlipidemia Impaired Fasting Glucose Patent Foramen Ovale Deviated Nasal Septum Arthralgia Plan - Discontinue atenolol due to symptomatic lightheadedness and bradycardia. - Continue spironolactone 50 mg for hypertension and continue all other current medications. - The patient will continue to monitor his blood pressure daily at home. - Continue gabapentin 200 mg daily for peripheral neuropathy as symptoms are well-controlled. - A referral will be made to a licensed occupational therapist for evaluation of an intermittent, pruritic skin rash. - Instructed to use nasal spray daily, not intermittently, for optimal effect. - An order was placed for a new set of labs, which the patient will have drawn today. - The patient was instructed to bring all medication and supplement bottles to his next visit for a complete medication reconciliation. - Schedule a follow-up appointment in approximately 3 months. Orders: Orders Hemoglobin A1c Today E78.9 - Disorder of lipoprotein metabolism, unspecified, F41.1 - Generalized anxiety disorder, G62.9 - Polyneuropathy, unspecified, I10 - Essential (primary) hypertension, Q21.1 - Atrial septal defect, Z91.09 - Other allergy status, other than to drugs and biological substances, Z95.818 - Presence of other cardiac implants and grafts Ferritin Today D50.9 - Iron deficiency anemia, unspecified Complete Blood Count Auto Diff Today E78.9 - Disorder of lipoprotein metabolism, unspecified, F41.1 - Generalized anxiety disorder, G62.9 - Polyneuropathy, unspecified, I10 - Essential (primary) hypertension, Q21.1 - Atrial septal defect, Z91.09 - Other allergy status, other than to drugs and biological substances, Z95.818 - Presence of other cardiac implants and grafts Comprehensive Met. Panel Today E78.9 - Disorder of lipoprotein metabolism, unspecified, F41.1 - Generalized anxiety disorder, G62.9 - Polyneuropathy, unspecified, I10 - Essential (primary) hypertension, Q21.1 - Atrial septal defect, Z91.09 - Other allergy status, other than to drugs and biological substances, Z95.818 - Presence of other cardiac implants and grafts Medications: Refilled fluticasone propionate 50 mcg/actuation (Flonase Allergy Relief) administer into each nostril 1 spray intranasal DAILY 16 grams 3RF 30 days gabapentin 200 mg (2 x 100 mg) PO BEDTIME 180 caps 0RF 90 days On Hold atenolol Hold Comment: low HR 25 mg PO DAILY 90 days 90 tabs 0RF
--- OUTSIDE RECORDS SUMMARY | 2025-06-22 17:16 | XMS_ITS | Patient Health Record ---
Author Organization [facility] Address [address] [place] [id number] Care Team Providers Care Social Welfare Administrator Name Role Phone Damaso SOSA, Asma Primary Care Provider Reji Hayes [phone] Reason For Referral No Information Plan Of Treatment No Information Insurance Providers Payer Name Payer Address Payer Phone Subscriber Number Group Number Insured Name Patient Relationship to Insured Coverage Start Date Coverage End Date [facility] [address] [place] [phone] [id number] RYANN STYLES Self - patient is the insured
== END 2025-06-22 13:54 | disposition home or self-care (01) ==
LOC: HO.HMCC 13:24
PROVIDERS: PCP Internal Medicine; Visit Provider Internal Medicine
DX: I10 Essential (primary) hypertension (principal); F41.1 Generalized anxiety disorder; I63.9 Cerebral infarction, unspecified; Z91.09 Other allergy status, other than to drugs and biological substances; Q21.10 Atrial septal defect, unspecified; E78.9 Disorder of lipoprotein metabolism, unspecified; Z95.818 Presence of other cardiac implants and grafts; G62.9 Polyneuropathy, unspecified; D50.9 Iron deficiency anemia, unspecified